=== PATIENT | female | born 1995 ===

== ENCOUNTER 2020-06-29 04:08 | Inpatient (IN) | payer MEDICAID, OTHER ==
[2020-06-29] MEDS ORDERED: Carboprost Tromethamine 250 MCG/1 ML Amp IM PRN (12:50)
[2020-06-29] MEDS ORDERED: Methylergonovine 0.2 MG/1 ML Amp IM PRN (12:50)
[2020-06-29] MEDS ORDERED: Lidocaine 1% 50 ML MDV INJECT PRN (12:50)
[2020-06-29] MEDS ORDERED: Misoprostol 200 MCG Tab PO PRN (12:50)
[2020-06-29] MEDS ORDERED: Sodium Chloride 0.9% 10 ML Syringe FLUSH PRN (12:50)
[2020-06-29] MEDS ORDERED: Sodium Chloride 0.9% 2.5 ML Syringe FLUSH PRN (12:50)
[2020-06-29] MEDS ORDERED: Sodium Chloride 0.9% 10 ML SDV IV PRN (12:50)
[2020-06-29] MEDS ORDERED: Water For Irrigation,Sterile 1,000 ML Container IRR PRN (12:50)
[2020-06-29] MEDS ORDERED: Nalbuphine 10 MG/1 ML Vial IVPUSH PRN (12:50)
[2020-06-29] MEDS ORDERED: Tranexamic Acid 1,000 MG in Sodium Chloride 0.9% 100 ML IV PRN (12:50)
[2020-06-29] MEDS ORDERED: Misoprostol 25 MCG (1/4 of 100 MCG) Tab VAG PRN (12:52)
[2020-06-29] MEDS ORDERED: Terbutaline 1 MG/ML SDV SUBCUT PRN (12:52)
[2020-06-29] MEDS ORDERED: Oxytocin/0.9 % Sodium Chloride 30 UNIT/500 ML BAG IV SCH ×2 (13:00)
[2020-06-29] MEDS: Misoprostol 25 MCG (1/4 of 100 MCG) Tab VAG PRN ×2 (18:51→23:05)
[2020-06-30] MEDS: Misoprostol 25 MCG (1/4 of 100 MCG) Tab VAG PRN ×2 (03:28→08:59)
[2020-06-30] MEDS: Butorphanol 1 MG/ML SDV IVPUSH PRN ×2 (06:02→09:41)
[2020-06-30] MEDS: Lactated Ringers 1,000 ML IV SCH ×2 (10:00→10:33)
[2020-06-30] MEDS ORDERED: Ropivacaine HCl/PF 100 ML ONE (10:19)
[2020-06-30] MEDS ORDERED: fentaNYL 100 MCG/2 ML SDV ONE (10:19)
--- NOTE | 2020-06-30 10:58 | PCM.PREANE ---
Preanesthetic Assessment - Procedure Proposed Procedure: Continuous labor epidural - Anesthesia/Transfusion/Family Hx Anesthesia History: Prior Anesthesia Without Reaction ([place] teeth without anesthetic complications. Unable to recall anesthetic type.) Family History of Anesthesia Reaction: No Transfusion History: No Prior Transfusion(s) - Review of Systems General: No Symptoms Pulmonary: No Symptoms Cardiovascular: No Symptoms Gastrointestinal: No Symptoms Neurological: No Symptoms Other: Reports: None - Physical Assessment NPO Status Date: 06/30/20 NPO Status Time: 10:00 (Clear liquids okay) Height: 1.7 m Weight: 78.471 kg ASA Class: 2 Mental Status: Alert & Oriented x3 Dentition: Reports: Normal Dentition ROM/Head Extension: Full Lungs: Normal Respiratory Effort Cardiovascular: Regular Rate, Regular Rhythm - Lab Values: Laboratory Last Values WBC 9.71 K/uL (4.0-11.0) 06/29/20 12:40 RBC 4.10 M/uL (4.30-5.90) L 06/29/20 12:40 Hgb 11.8 g/dL (12.0-16.0) L 06/29/20 12:40 Hct 36.8 % (36.0-46.0) 06/29/20 12:40 MCV 89.8 fL (80.0-98.0) 06/29/20 12:40 MCH 28.8 pg (27.0-32.0) 06/29/20 12:40 MCHC 32.1 g/dL (31.0-37.0) 06/29/20 12:40 RDW Std Deviation 61.7 fl (28.0-62.0) 06/29/20 12:40 RDW Coeff of Lissa 19 % (11.0-15.0) H 06/29/20 12:40 Plt Count 166 K/uL (150-400) 06/29/20 12:40 MPV 11.30 fL (7.40-12.00) 06/29/20 12:40 Nucleated RBC % 0.0 /100WBC 06/29/20 12:40 Nucleated RBCs # 0 K/uL 06/29/20 12:40 COVID-19 (ANA) NEGATIVE (NEGATIVE) 06/29/20 11:55 Blood Type O POSITIVE 06/29/20 12:40 Antibody Screen NEGATIVE 06/29/20 12:40 - Allergies Allergies/Adverse Reactions: Allergies Allergy/AdvReac Type Severity Reaction Status Date / Time No Known Allergies Allergy Verified 06/29/20 11:50 - Acknowledgements Anesthesia Type Planned: Epidural Pt an Appropriate Candidate for the Planned Anesthesia: Yes Alternatives and Risks of Anesthesia Discussed w Pt/Guardian: Yes Pt/Guardian Understands and Agrees with Anesthesia Plan: Yes Additional Comments: Pt educated on epidural risks, benefits, alternatives, procedure, maintenance, and anesthesia coverage. All questions answered and concerns addressed. 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: Musculoskeletal History: Reports: None Neurological History: Reports: None Psychiatric History: Reports: None Endocrine/Metabolic History: Reports: None Hematologic History: Reports: None Immunologic History: Reports: None Oncologic (Cancer) History: Reports: None Dermatologic History: Reports: None - Infectious Disease History Infectious Disease History: Reports: None - Past Surgical History HEENT Surgical History: Reports: Oral Surgery, Other (See Below) Other HEENT Surgeries/Procedures: wisdom teeth out GI Surgical History: Reports: None - SUBSTANCE USE Smoking Status *Q: Never Smoker Second Hand Smoke Exposure: No Recreational Drug Use History: No - HOME MEDS Home Medications: Home Meds Pnv No.95/Ferrous Fum/Folic AC [ Caplet] 1 each PO DAILY 06/29/20 [History] - CURRENT (IN HOUSE) MEDS Current Meds: Current Medications Butorphanol Tartrate (Stadol) 1 mg IVPUSH Q1H PRN PRN Reason: Pain Last Admin: 06/30/20 09:41 Dose: 1 mg Documented by: Carboprost Tromethamine (Hemabate Ds) 250 mcg IM ASDIRECTED PRN PRN Reason: Post Hemorrhage Oxytocin/Sodium Chloride (Oxytocin 30 Unit/500 Ml-Ns) 30 unit in 500 mls @ 500 mls/hr IV TITRATE SKYLER Tranexamic Acid 1,000 mg/ (Sodium Chloride) 110 mls @ 660 mls/hr IV ONETIME PRN PRN Reason: Bleeding Lactated Ringer's (Ringers, Lactated) 1,000 mls @ 150 mls/hr IV ASDIRECTED SKYLER Last Infusion: 08/05/20 10:46 Dose: 500 mls/hr Documented by: Oxytocin/Sodium Chloride (Oxytocin 30 Unit/500 Ml-Ns) 30 unit in 500 mls @ 2 mls/hr IV TITRATE SKYLER; Protocol Lidocaine HCl (Xylocaine 1%) 50 ml INJECT ONETIME PRN PRN Reason: Laceration repair Methylergonovine Maleate (Methergine) 0.2 mg IM ASDIRECTED PRN PRN Reason: Post Hemorrhage Misoprostol (Cytotec) 200 mcg PO ONETIME PRN PRN Reason: Post Hemorrhage Misoprostol (Cytotec) 25 mcg VAG ONETIME PRN PRN Reason: Cervical Ripening Last Admin: 06/29/20 13:31 Dose: 25 mcg Documented by: Misoprostol (Cytotec) 25 mcg VAG Q4H PRN PRN Reason: Cervical Ripening Last Admin: 06/30/20 08:59 Dose: 25 mcg Documented by: Nalbuphine HCl (Nubain) 10 mg IVPUSH Q1H PRN PRN Reason: Pain (severe 7-10) Sodium Chloride (Saline Flush) 10 ml FLUSH ASDIRECTED PRN PRN Reason: Keep Vein Open Sodium Chloride (Saline Flush) 2.5 ml FLUSH ASDIRECTED PRN PRN Reason: Keep Vein Open Sodium Chloride (Normal Saline) 10 ml IV ASDIRECTED PRN PRN Reason: IV Use Sterile Water (Sterile Water For Irrigation) 1,000 ml IRR ASDIRECTED PRN PRN Reason: delivery Terbutaline Sulfate (Brethine) 0.25 mg SUBCUT ASDIRECTED PRN PRN Reason: Tacysystole Discontinued Medications Fentanyl (Sublimaze) Confirm Administered Dose 200 mcg .ROUTE .STK-MED ONE Stop: 06/30/20 10:20 Ropivacaine (Naropin 0.2%) Confirm Administered Dose 100 mls @ as directed .ROUTE .STK-MED ONE Stop: 06/30/20 10:20
[2020-06-30] MEDS ORDERED: Ondansetron 4 MG/2 ML SDV IVPUSH PRN (20:59)
--- NOTE | 2020-06-30 21:43 | PCM.SN.2 ---
- Free Text/Narrative Note: 06/30/20: Paged to OB for breakthrough labor pain with contractions. Bedside at 2118. Epidural level assessed at T9 on R, T10 on L. Pt has used SPECIAL EDUC[employer] INCLUSION TEACHER button once since epidural placement, so further education and encouragement provided regarding [employer]UC[employer] INCLUSION TEACHER usage, and fears addressed. Hourly limit increased to 32, with hourly rate increased from 6 to 8ml/hr. Pt reassessed at 0941- T8 level bilat., and pain control satisfactory per patient.
[2020-06-30] MEDS ORDERED: Bupivicaine/fentaNYL/NS 250 ML ONE (23:21)
[2020-07-01] MEDS ORDERED: oxyCODONE 5 MG Tab PO PRN (04:49)
[2020-07-01] MEDS ORDERED: Ibuprofen 400 MG Tab PO PRN (04:49)
[2020-07-01] MEDS ORDERED: Acetaminophen 500 MG Tab PO PRN (04:49)
[2020-07-01] MEDS ORDERED: Benzocaine/Menthol 20%-0.5% Spray 78 GM Cannister TOP PRN (04:49)
[2020-07-01] MEDS ORDERED: Bisacodyl 10 MG Supp RECTAL PRN (04:49)
[2020-07-01] MEDS ORDERED: Docusate Sodium 100 MG Cap PO PRN (04:49)
[2020-07-01] MEDS ORDERED: Ibuprofen 800 MG Tab PO PRN (04:49)
[2020-07-01] MEDS ORDERED: Witch Hazel Medicated Pads 40/Jar TOP PRN (04:49)
[2020-07-01] MEDS ORDERED: Lanolin 100% Cream 7 GM Tube TOP PRN (04:49)
--- NOTE | 2020-07-01 04:49 | PCM.DEL ---
L & D Note - General Info Date of Service: 07/01/20 Mother's Due Date: 06/28/20 - Delivery Note Labor: Induced by ARM, Induced by Oxytocin Cervical Ripening Method: Balloon Device, Misoprostil Delivery Outcome: Livebirth Delivery Method: Spontaneous Vaginal Delivery-Single Delivery Mode: Spontaneous Presentation: Right Occiput Transverse (ROT) Nuchal Cord: Present Anesthesia Type: Epidural Amniotic Fluid Description: Clear Episiotomy Type: None Laceration: 1st Degree Suture type: Vicryl Suture size: 3-0 Placenta: Intact, Spontaneous Cord: 3 Vessels Estimated Blood Loss: 200 Resuscitation Needed: No : Suctioned, Bulb Syringe, Warmer Used Score 1 min: 8 Score 5 min: 8 Second Stage Interventions: Reports: Encouragement Given, Laboring Down, Pushing Effectively Delivery Comments (Free Text/Narrative):: Patient was induced 06/29/20 for postdates at 40w1d. She received 5 doses of vaginal cytotec followed by wen balloon and pitocin at 1200 06/30/20. AROM was performed at 1800, IUPC was placed. Labor progressed uneventfully and patient was complete at 0150 am 07/01/20, she labored down for an hour and pushed for 30 minutes. occurred at 0408; APGARs were 8/8, placenta was delivered at 0414, MEU was performed and uterus was clear. Right labia first degree lacerations were repaired with 3-0 vicryl. EBL 200. Patient and infant in stable condition in labor room. - General Info Date of Service: 07/01/20 - Patient Data Weight - Most Recent: 173 lb Lab Results Last 24 Hours: Laboratory Results - last 24 hr 06/29/20 Range/Units 12:40 RPR Non-Reac (Non-Reac) Med Orders - Current: Current Medications Butorphanol Tartrate (Stadol) 1 mg IVPUSH Q1H PRN PRN Reason: Pain Last Admin: 06/30/20 09:41 Dose: 1 mg Documented by: Carboprost Tromethamine (Hemabate Ds) 250 mcg IM ASDIRECTED PRN PRN Reason: Post Hemorrhage Oxytocin/Sodium Chloride (Oxytocin 30 Unit/500 Ml-Ns) 30 unit in 500 mls @ 500 mls/hr IV TITRATE SKYLER Last Admin: 07/01/20 03:38 Dose: 500 mls/hr Documented by: Tranexamic Acid 1,000 mg/ (Sodium Chloride) 110 mls @ 660 mls/hr IV ONETIME PRN PRN Reason: Bleeding Lactated Ringer's (Ringers, Lactated) 1,000 mls @ 150 mls/hr IV ASDIRECTED SKYLER Last Infusion: 06/30/20 10:56 Dose: 150 mls/hr Documented by: Oxytocin/Sodium Chloride (Oxytocin 30 Unit/500 Ml-Ns) 30 unit in 500 mls @ 2 mls/hr IV TITRATE SKYLER; Protocol Last Titration: 06/30/20 23:51 Dose: 28 munits/min, 28 mls/hr Documented by: Lidocaine HCl (Xylocaine 1%) 50 ml INJECT ONETIME PRN PRN Reason: Laceration repair Methylergonovine Maleate (Methergine) 0.2 mg IM ASDIRECTED PRN PRN Reason: Post Hemorrhage Misoprostol (Cytotec) 200 mcg PO ONETIME PRN PRN Reason: Post Hemorrhage Misoprostol (Cytotec) 25 mcg VAG ONETIME PRN PRN Reason: Cervical Ripening Last Admin: 06/29/20 13:31 Dose: 25 mcg Documented by: Misoprostol (Cytotec) 25 mcg VAG Q4H PRN PRN Reason: Cervical Ripening Last Admin: 06/30/20 08:59 Dose: 25 mcg Documented by: Nalbuphine HCl (Nubain) 10 mg IVPUSH Q1H PRN PRN Reason: Pain (severe 7-10) Ondansetron HCl (Zofran) 4 mg IVPUSH Q4H PRN PRN Reason: Vomiting Last Admin: 06/30/20 21:19 Dose: 4 mg Documented by: Sodium Chloride (Saline Flush) 10 ml FLUSH ASDIRECTED PRN PRN Reason: Keep Vein Open Sodium Chloride (Saline Flush) 2.5 ml FLUSH ASDIRECTED PRN PRN Reason: Keep Vein Open Sodium Chloride (Normal Saline) 10 ml IV ASDIRECTED PRN PRN Reason: IV Use Sterile Water (Sterile Water For Irrigation) 1,000 ml IRR ASDIRECTED PRN PRN Reason: delivery Terbutaline Sulfate (Brethine) 0.25 mg SUBCUT ASDIRECTED PRN PRN Reason: Tacysystole Discontinued Medications Fentanyl (Sublimaze) Confirm Administered Dose 200 mcg .ROUTE .STK-MED ONE Stop: 06/30/20 10:20 Ropivacaine (Naropin 0.2%) Confirm Administered Dose 100 mls @ as directed .ROUTE .STK-MED ONE Stop: 06/30/20 10:20 Fentanyl/Bupivacaine HCl (Fentanyl/Bupivacaine/Ns 2 Mcg-0.125% 250 Ml) Confirm Administered Dose 250 mls @ as directed .ROUTE .STK-MED ONE Stop: 06/30/20 23:22 - Problem List & Annotations (1) Status post vaginal delivery SNOMED Code(s): 610537614, 781319468, 181032693 Code(s): MLF6180 - Status: Acute Current Visit: Yes (2) Iron deficiency anemia SNOMED Code(s): 42969652 Code(s): D50.9 - IRON DEFICIENCY ANEMIA, UNSPECIFIED Status: Acute Current Visit: Yes - Problem List Review Problem List Initiated/Reviewed/Updated: Yes - Plan Plan:: 1. GBS negative 2. Rubella immune 3. Induction 06/29/20 for postdates 4. Iron deficiency initial 11.8 Hemoglobin, repeat Hemoglobin tomorrow 5. care per unit routine
--- NOTE | 2020-07-01 09:09 | PCM48HPAN ---
Post Anesthesia Note - EVALUATION WITHIN 48HRS OF ANESTHETIC Vital Signs in Normal Range: Yes Patient Participated in Evaluation: Yes Respiratory Function Stable: Yes Airway Patent: Yes Cardiovascular Function Stable: Yes Hydration Status Stable: Yes Pain Control Satisfactory: Yes Nausea and Vomiting Control Satisfactory: Yes Mental Status Recovered: Yes - COMMENTS/OBSERVATIONS Free Text/Narrative:: doing well
[2020-07-01] MEDS: Acetaminophen 500 MG Tab PO PRN ×2 (16:42→23:55)
[2020-07-01] MEDS ORDERED: Ampicillin/Sulbactam Na 3 GM in Sodium Chloride 0.9% 100 ML IV SCH (18:00)
[2020-07-01] MEDS ORDERED: Sodium Chloride 0.9% 250 ML ONE (18:15)
[2020-07-02] MEDS: Ampicillin/Sulbactam Na 3 GM in Sodium Chloride 0.9% 100 ML IV SCH ×4 (01:28→19:55)
--- NOTE | 2020-07-02 07:27 | PCM.PNPP ---
<Louise Joseph - Last Filed: 07/02/20 08:10> - General Info Date of Service: 07/02/20 Admission Dx/Problem (Free Text): of male weighing 7lbs 2 ounces to a 24 year old female who was induced for postdates. Apgars 8 Subjective Update: Patient reports that she is doing well. She did note that in the middle of the night she had some shaking chills that improved after drinking some water and using more blankets. Temperatures were recorded at 99.4 and 98 this morning. Repeat CBC demonstrated WBC of 14.99, decreased from a WBC of 18.07 yesterday. Initial hemoglobin was 11.8, subsequent hemoglobins have been 11.2 and 10.5 this morning. She is currently receiving ampicillin-sulbactam and Tylenol. Otherwise she is feeling well. Has not defecated but is passing gas. She is breast and bottle feeding. Functional Status: Reports: Pain Controlled, Tolerating Diet, Ambulating, Urinating - Review of Systems General: Reports: Chills HEENT: Reports: No Symptoms Pulmonary: Reports: No Symptoms Cardiovascular: Reports: No Symptoms Gastrointestinal: Reports: No Symptoms Genitourinary: Reports: No Symptoms Musculoskeletal: Reports: No Symptoms Skin: Reports: No Symptoms Neurological: Reports: No Symptoms Psychiatric: Reports: No Symptoms - General Info Date of Service: 07/02/20 - Patient Data Vital Signs - Most Recent: Last Vital Signs Temp 98 F 07/02/20 03:57 Pulse 80 07/02/20 03:57 Resp 14 07/02/20 03:57 BP 112/67 07/02/20 03:57 Pulse Ox 95 07/02/20 03:57 Weight - Most Recent: 78.471 kg Lab Results - Last 24 Hours: Laboratory Results - last 24 hr 07/01/20 07/02/20 Range/Units 17:27 06:02 WBC 18.07 H 14.99 H (4.0-11.0) K/uL RBC 3.83 L 3.62 L (4.30-5.90) M/uL Hgb 11.2 L 10.5 L (12.0-16.0) g/dL Hct 34.3 L 32.6 L (36.0-46.0) % MCV 89.6 90.1 (80.0-98.0) fL MCH 29.2 29.0 (27.0-32.0) pg MCHC 32.7 32.2 (31.0-37.0) g/dL RDW Std Deviation 62.1 H 63.3 H (28.0-62.0) fl RDW Coeff of Lissa 19 H 19 H (11.0-15.0) % Plt Count 153 141 L (150-400) K/uL MPV 11.20 10.90 (7.40-12.00) fL Neut % (Auto) 87.3 H 89.4 H (48.0-80.0) % Lymph % (Auto) 4.9 L 5.1 L (16.0-40.0) % [place] % (Auto) 7.6 5.4 (0.0-15.0) % Eos % (Auto) 0.1 0.1 (0.0-7.0) % Baso % (Auto) 0.1 0.0 (0.0-1.5) % Neut # (Auto) 15.8 H 13.4 H (1.4-5.7) K/uL Lymph # (Auto) 0.9 0.8 (0.6-2.4) K/uL [place] # (Auto) 1.4 H 0.8 (0.0-0.8) K/uL Eos # (Auto) 0.0 0.0 (0.0-0.7) K/uL Baso # (Auto) 0.0 0.0 (0.0-0.1) K/uL Nucleated RBC % 0.0 0.0 /100WBC Nucleated RBCs # 0 0 K/uL Med Orders - Current: Current Medications Acetaminophen (Tylenol Extra Strength) 500 mg PO Q4H PRN PRN Reason: Pain Acetaminophen (Tylenol Extra Strength) 1,000 mg PO Q4H PRN PRN Reason: Pain Last Admin: 07/01/20 23:55 Dose: 1,000 mg Documented by: Benzocaine/Menthol (Dermoplast Pain Relief 20%-0.5% [place]) 78 gm TOP ASDIRECTED PRN PRN Reason: Perineal Comfort Measure Last Admin: 07/01/20 05:09 Dose: 1 spray Documented by: Bisacodyl (Dulcolax) 10 mg RECTAL ONETIME PRN PRN Reason: Constipation Docusate Sodium (Colace) 100 mg PO BID PRN PRN Reason: Constipation Emollient Ointment (Lansinoh Hpa) 0 gm TOP ASDIRECTED PRN PRN Reason: Sore Nipples Ampicillin Sodium/Sulbactam (Sodium 3 gm/ Sodium Chloride) 100 mls @ 200 mls/hr IV Q6H [facility] Last Admin: 07/02/20 01:28 Dose: 200 mls/hr Documented by: Ibuprofen (Motrin) 400 mg PO Q4H PRN PRN Reason: Pain Ibuprofen (Motrin) 800 mg PO Q6H PRN PRN Reason: Pain Oxycodone HCl (Oxycodone) 5 mg PO Q2H PRN PRN Reason: Pain Witch Sherin (Tucks) 1 pad TOP ASDIRECTED PRN PRN Reason: comfort care Last Admin: 07/01/20 05:09 Dose: 1 pad Documented by: Discontinued Medications Butorphanol Tartrate (Stadol) 1 mg IVPUSH Q1H PRN PRN Reason: Pain Last Admin: 06/30/20 09:41 Dose: 1 mg Documented by: Carboprost Tromethamine (Hemabate Ds) 250 mcg IM ASDIRECTED PRN PRN Reason: Post Hemorrhage Fentanyl (Sublimaze) Confirm Administered Dose 200 mcg .ROUTE .STK-MED ONE Stop: 06/30/20 10:20 Oxytocin/Sodium Chloride (Oxytocin 30 Unit/500 Ml-Ns) 30 unit in 500 mls @ 500 mls/hr IV TITRATE [facility] Last Admin: 07/01/20 03:38 Dose: 500 mls/hr Documented by: Tranexamic Acid 1,000 mg/ (Sodium Chloride) 110 mls @ 660 mls/hr IV ONETIME PRN PRN Reason: Bleeding Lactated Ringer's (Ringers, Lactated) 1,000 mls @ 150 mls/hr IV ASDIRECTED [facility] Last Infusion: 06/30/20 10:56 Dose: 150 mls/hr Documented by: Oxytocin/Sodium Chloride (Oxytocin 30 Unit/500 Ml-Ns) 30 unit in 500 mls @ 2 mls/hr IV TITRATE [facility]; Protocol Last Titration: 06/30/20 23:51 Dose: 28 munits/min, 28 mls/hr Documented by: Ropivacaine (Naropin 0.2%) Confirm Administered Dose 100 mls @ as directed .ROUTE .[employer] ONE Stop: 06/30/20 10:20 Fentanyl/Bupivacaine HCl (Fentanyl/Bupivacaine/Ns 2 Mcg-0.125% 250 Ml) Confirm Administered Dose 250 mls @ as directed .ROUTE .[employer] ONE Stop: 06/30/20 23:22 Ampicillin Sodium/Sulbactam (Sodium 3 gm/ Sodium Chloride) 100 mls @ 200 mls/hr IV Q6H [facility] Last Admin: 07/01/20 19:05 Dose: 200 mls/hr Documented by: Sodium Chloride (Normal Saline (Advbag)) Confirm Administered Dose 250 mls @ as directed .ROUTE .[employer] ONE Stop: 07/01/20 18:16 Lidocaine HCl (Xylocaine 1%) 50 ml INJECT ONETIME PRN PRN Reason: Laceration repair Methylergonovine Maleate (Methergine) 0.2 mg IM ASDIRECTED PRN PRN Reason: Post Hemorrhage Misoprostol (Cytotec) 200 mcg PO ONETIME PRN PRN Reason: Post Hemorrhage Misoprostol (Cytotec) 25 mcg VAG ONETIME PRN PRN Reason: Cervical Ripening Last Admin: 06/29/20 13:31 Dose: 25 mcg Documented by: Misoprostol (Cytotec) 25 mcg VAG Q4H PRN PRN Reason: Cervical Ripening Last Admin: 06/30/20 08:59 Dose: 25 mcg Documented by: Nalbuphine HCl (Nubain) 10 mg IVPUSH Q1H PRN PRN Reason: Pain (severe 7-10) Ondansetron HCl (Zofran) 4 mg IVPUSH Q4H PRN PRN Reason: Vomiting Last Admin: 06/30/20 21:19 Dose: 4 mg Documented by: Sodium Chloride (Saline Flush) 10 ml FLUSH ASDIRECTED PRN PRN Reason: Keep Vein Open Sodium Chloride (Saline Flush) 2.5 ml FLUSH ASDIRECTED PRN PRN Reason: Keep Vein Open Sodium Chloride (Normal Saline) 10 ml IV ASDIRECTED PRN PRN Reason: IV Use Sterile Water (Sterile Water For Irrigation) 1,000 ml IRR ASDIRECTED PRN PRN Reason: delivery Terbutaline Sulfate (Brethine) 0.25 mg SUBCUT ASDIRECTED PRN PRN Reason: Tacysystole - Interaction Disposition, : at Bedside Interaction: Other (see below) (Infant sleeping in crib) Feeding: Attempted ; Nursed Fair/Poor, Bottle Fed Infant, Encouraged to Breastfeed Support Person: Other (see below) - Recovery Exam Fundal Tone: Firm Fundal Level: 1 Fingerbreadths Below Umbilicus Fundal Placement: Midline Lochia Amount: Scant Lochia Color: Rubra/Red Perineum Description: Edematous Episiotomy/Laceration: Approximated Bladder Status: Voiding - Exam General: Alert, Oriented HEENT: Pupils Equal, Pupils Reactive, EOMI Lungs: Clear to Auscultation, Normal Respiratory Effort Cardiovascular: Regular Rate, Regular Rhythm, Tachycardia GI/Abdominal Exam: Normal Bowel Sounds, Soft, Non-Tender, No Organomegaly, No Distention, No Mass Extremities: Normal Inspection, Non-Tender, No Pedal Edema, Normal Capillary Ref ill Skin: Warm, Dry, Intact Neurological: No New Focal Deficit Psy/Mental Status: Alert, Normal Affect, Normal Mood - Problem List & Annotations (1) Status post vaginal delivery SNOMED Code(s): 110749044, 269721209, 591014012 Code(s): SSL9323 - Status: Acute Current Visit: Yes (2) Iron deficiency anemia SNOMED Code(s): 97231935 Code(s): D50.9 - IRON DEFICIENCY ANEMIA, UNSPECIFIED Status: Acute Current Visit: Yes - Problem List Review Problem List Initiated/Reviewed/Updated: Yes - Assessment Assessment:: of a male weighing 7lbs 2 oz to a 24 year old female who underwent induction for oligohydramnios. Apgars 8/8 - Plan Plan:: 1. GBS negative 2. Rubella immune 3. Induction 06/29/20 for postdates 4. Iron deficiency initial 11.8 Hemoglobin, repeat Hemoglobin 11.2 and 10.5 5. care per unit routine 6. Continue 7. Continue on the ampicillin-sulbactam and monitor for fever or worsening symptoms. WBC has improved with ampicillin-sulbactam, however patient is tachycardic and warm. 8. Discharge home tomorrow on Augmentin if symptoms improve <Anjali-Vannessa Delgado - Last Filed: 07/02/20 08:32> - Patient Data Vital Signs - Most Recent: Last Vital Signs Temp 36.8 C 07/02/20 07:54 Pulse 120 H 07/02/20 07:54 Resp 16 07/02/20 07:54 BP 92/49 L 07/02/20 07:54 Pulse Ox 94 L 07/02/20 07:54 Lab Results - Last 24 Hours: Laboratory Results - last 24 hr 07/01/20 07/02/20 Range/Units 17:27 06:02 WBC 18.07 H 14.99 H (4.0-11.0) K/uL RBC 3.83 L 3.62 L (4.30-5.90) M/uL Hgb 11.2 L 10.5 L (12.0-16.0) g/dL Hct 34.3 L 32.6 L (36.0-46.0) % MCV 89.6 90.1 (80.0-98.0) fL MCH 29.2 29.0 (27.0-32.0) pg MCHC 32.7 32.2 (31.0-37.0) g/dL RDW Std Deviation 62.1 H 63.3 H (28.0-62.0) fl RDW Coeff of [place] 19 H 19 H (11.0-15.0) % Plt Count 153 141 L (150-400) K/uL MPV 11.20 10.90 (7.40-12.00) fL Neut % (Auto) 87.3 H 89.4 H (48.0-80.0) % Lymph % (Auto) 4.9 L 5.1 L (16.0-40.0) % [place] % (Auto) 7.6 5.4 (0.0-15.0) % Eos % (Auto) 0.1 0.1 (0.0-7.0) % Baso % (Auto) 0.1 0.0 (0.0-1.5) % Neut # (Auto) 15.8 H 13.4 H (1.4-5.7) K/uL Lymph # (Auto) 0.9 0.8 (0.6-2.4) K/uL [place] # (Auto) 1.4 H 0.8 (0.0-0.8) K/uL Eos # (Auto) 0.0 0.0 (0.0-0.7) K/uL Baso # (Auto) 0.0 0.0 (0.0-0.1) K/uL Nucleated RBC % 0.0 0.0 /100WBC Nucleated RBCs # 0 0 K/uL Med Orders - Current: Current Medications Acetaminophen (Tylenol Extra Strength) 500 mg PO Q4H PRN PRN Reason: Pain Acetaminophen (Tylenol Extra Strength) 1,000 mg PO Q4H PRN PRN Reason: Pain Last Admin: 07/01/20 23:55 Dose: 1,000 mg Documented by: Benzocaine/Menthol (Dermoplast Pain Relief 20%-0.5% [place]) 78 gm TOP ASDIRECTED PRN PRN Reason: Perineal Comfort Measure Last Admin: 07/01/20 05:09 Dose: 1 spray Documented by: Bisacodyl (Dulcolax) 10 mg RECTAL ONETIME PRN PRN Reason: Constipation Docusate Sodium (Colace) 100 mg PO BID PRN PRN Reason: Constipation Emollient Ointment (Lansinoh Hpa) 0 gm TOP ASDIRECTED PRN PRN Reason: Sore Nipples Ampicillin Sodium/Sulbactam (Sodium 3 gm/ Sodium Chloride) 100 mls @ 200 mls/hr IV Q6H [facility] Last Admin: 07/02/20 07:34 Dose: 200 mls/hr Documented by: Lactated Ringer's (Ringers, Lactated) 1,000 mls @ 120 mls/hr IV ASDIRECTED [facility] Last Admin: 07/02/20 08:19 Dose: 120 mls/hr Documented by: Ibuprofen (Motrin) 400 mg PO Q4H PRN PRN Reason: Pain Ibuprofen (Motrin) 800 mg PO Q6H PRN PRN Reason: Pain Oxycodone HCl (Oxycodone) 5 mg PO Q2H PRN PRN Reason: Pain Witch Sherin (Tucks) 1 pad TOP ASDIRECTED PRN PRN Reason: comfort care Last Admin: 07/01/20 05:09 Dose: 1 pad Documented by: Discontinued Medications Butorphanol Tartrate (Stadol) 1 mg IVPUSH Q1H PRN PRN Reason: Pain Last Admin: 06/30/20 09:41 Dose: 1 mg Documented by: Carboprost Tromethamine (Hemabate Ds) 250 mcg IM ASDIRECTED PRN PRN Reason: Post Hemorrhage Fentanyl (Sublimaze) Confirm Administered Dose 200 mcg .ROUTE .STK-MED ONE Stop: 06/30/20 10:20 Oxytocin/Sodium Chloride (Oxytocin 30 Unit/500 Ml-Ns) 30 unit in 500 mls @ 500 mls/hr IV TITRATE [facility] Last Admin: 07/01/20 03:38 Dose: 500 mls/hr Documented by: Tranexamic Acid 1,000 mg/ (Sodium Chloride) 110 mls @ 660 mls/hr IV ONETIME PRN PRN Reason: Bleeding Lactated Ringer's (Ringers, Lactated) 1,000 mls @ 150 mls/hr IV ASDIRECTED [facility] Last Infusion: 06/30/20 10:56 Dose: 150 mls/hr Documented by: Oxytocin/Sodium Chloride (Oxytocin 30 Unit/500 Ml-Ns) 30 unit in 500 mls @ 2 mls/hr IV TITRATE [facility]; Protocol Last Titration: 06/30/20 23:51 Dose: 28 munits/min, 28 mls/hr Documented by: Ropivacaine (Naropin 0.2%) Confirm Administered Dose 100 mls @ as directed .ROUTE .STK-MED ONE Stop: 06/30/20 10:20 Fentanyl/Bupivacaine HCl (Fentanyl/Bupivacaine/Ns 2 Mcg-0.125% 250 Ml) Confirm Administered Dose 250 mls @ as directed .ROUTE .STK-MED ONE Stop: 06/30/20 23:22 Ampicillin Sodium/Sulbactam (Sodium 3 gm/ Sodium Chloride) 100 mls @ 200 mls/hr IV Q6H [facility] Last Admin: 07/01/20 19:05 Dose: 200 mls/hr Documented by: Sodium Chloride (Normal Saline (Advbag)) Confirm Administered Dose 250 mls @ as directed .ROUTE .STK-MED ONE Stop: 07/01/20 18:16 Lidocaine HCl (Xylocaine 1%) 50 ml INJECT ONETIME PRN PRN Reason: Laceration repair Methylergonovine Maleate (Methergine) 0.2 mg IM ASDIRECTED PRN PRN Reason: Post Hemorrhage Misoprostol (Cytotec) 200 mcg PO ONETIME PRN PRN Reason: Post Hemorrhage Misoprostol (Cytotec) 25 mcg VAG ONETIME PRN PRN Reason: Cervical Ripening Last Admin: 06/29/20 13:31 Dose: 25 mcg Documented by: Misoprostol (Cytotec) 25 mcg VAG Q4H PRN PRN Reason: Cervical Ripening Last Admin: 06/30/20 08:59 Dose: 25 mcg Documented by: Nalbuphine HCl (Nubain) 10 mg IVPUSH Q1H PRN PRN Reason: Pain (severe 7-10) Ondansetron HCl (Zofran) 4 mg IVPUSH Q4H PRN PRN Reason: Vomiting Last Admin: 06/30/20 21:19 Dose: 4 mg Documented by: Sodium Chloride (Saline Flush) 10 ml FLUSH ASDIRECTED PRN PRN Reason: Keep Vein Open Sodium Chloride (Saline Flush) 2.5 ml FLUSH ASDIRECTED PRN PRN Reason: Keep Vein Open Sodium Chloride (Normal Saline) 10 ml IV ASDIRECTED PRN PRN Reason: IV Use Sterile Water (Sterile Water For Irrigation) 1,000 ml IRR ASDIRECTED PRN PRN Reason: delivery Terbutaline Sulfate (Brethine) 0.25 mg SUBCUT ASDIRECTED PRN PRN Reason: Tacysystole - Problem List & Annotations (1) Status post vaginal delivery SNOMED Code(s): 405043648, 631189512, 797583841 Code(s): IOZ7487 - Status: Acute Current Visit: Yes (2) fever SNOMED Code(s): 426994549, 045993839 Code(s): O86.4 - PYREXIA OF UNKNOWN ORIGIN FOLLOWING DELIVERY Status: Acute Current Visit: Yes - My Orders Last 24 Hours: My Active Orders 07/02/20 01:00 Ampicillin/Sulbactam Na [Unasyn] 3 gm Sodium Chloride 0.9% [Normal Saline] 100 ml IV Q6H 07/02/20 08:15 Lactated Ringers [Ringers, Lactated] 1,000 ml IV ASDIRECTED 07/03/20 08:24 CBC WITH MANUAL DIFF [HEME] Routine - Assessment Assessment:: 24yo P1 s/p PPD1 , Postoperative fever , Decreasing WBC count , Tachycardia , , ambulating , normal lochia - Plan Plan:: As above LR 1000ml bolus Continue Unasyn Will discharge home tomorrow with augmentin ( script sent) CBC in am Monitor vital signs
[2020-07-02] MEDS ORDERED: Lactated Ringers 1,000 ML IV SCH (08:15)
[2020-07-02] MEDS: Acetaminophen 500 MG Tab PO PRN ×2 (08:46→19:37)
[2020-07-02] MEDS ORDERED: Sodium Chloride 0.9% 1,000 ML IV ONE (17:45)
[2020-07-02 18:52] LABS: BLOOD UREA NITROGEN,BUN 7 mg/dL (7.0-18.0); CARBON DIOXIDE,CO2 26.2 mmol/L (21.0-32.0); CHLORIDE,CL 102 mmol/L (98-107); GLUCOSE RANDOM 79 mg/dL (74-106); POTASSIUM,K 3.7 mmol/L (3.5-5.1); SODIUM,NA 136 mmol/L (136-145)
--- NOTE | 2020-07-02 19:17 | PCM.PN ---
<Louise Joseph - Last Filed: 07/02/20 20:36> - General Info Date of Service: 07/02/20 Admission Dx/Problem (Free Text): Status post day 1 of male infant weighing 7lbs 2 ounces to a 24 year old female who was induced for postdates. Apgars 8/8 Subjective Update: Patient is day 1 post of male . She reports that she is feeling well, however she reported overnight that she had an episode of shaking chills that resolved after approximately 15 minutes with some hydration and warm blankets. At 1 am this morning she received a dose of ampicillin/sulbactam 3 grams for elevated temperatures in addition to Tylenol. Since this time she has received 3 doses of ampicillin/sulbactam 3 grams as prescribed by Dr. Delgado. CBC done this morning demonstrated improving WBC. She was evaluated this afternoon for a temperature of 101.8 F and tachycardia of 126 bpm; blood pressure remain 110-120s/55-60s. She did note that she initially had a rhinitis and sinus drainage prior to induction that had resolved, however today she reports that she has had return of the rhinitis and sinus drainage. She reports that the drainage is clear. She denies any cough, shortness of breath or dysuria. She did report some incontinence earlier today, but no dysuria. She had a negative COVID test 06/30/20. Functional Status: Reports: Pain Controlled, Tolerating Diet, Ambulating, Urinating - Review of Systems General: Reports: Fever HEENT: Reports: Sinus Congestion, Rhinitis Pulmonary: Reports: No Symptoms Cardiovascular: Reports: No Symptoms Gastrointestinal: Reports: No Symptoms Genitourinary: Reports: Incontinence. Denies: Dysuria Musculoskeletal: Reports: No Symptoms - Patient Data Vitals - Most Recent: Last Vital Signs Temp 101.8 F H 07/02/20 17:01 Pulse 126 H 07/02/20 17:01 Resp 16 07/02/20 17:01 BP 116/56 L 07/02/20 17:01 Pulse Ox 95 07/02/20 17:01 Weight - Most Recent: 78.471 kg Lab Results Last 24 Hours: Laboratory Results - last 24 hr 07/02/20 07/02/20 07/02/20 Range/Units 06:02 18:08 18:08 WBC 14.99 H 14.14 H (4.0-11.0) K/uL RBC 3.62 L 3.65 L (4.30-5.90) M/uL Hgb 10.5 L 10.7 L (12.0-16.0) g/dL Hct 32.6 L 33.2 L (36.0-46.0) % MCV 90.1 91.0 (80.0-98.0) fL MCH 29.0 29.3 (27.0-32.0) pg MCHC 32.2 32.2 (31.0-37.0) g/dL RDW Std Deviation 63.3 H 63.0 H (28.0-62.0) fl RDW Coeff of Lissa 19 H 19 H (11.0-15.0) % Plt Count 141 L 136 L (150-400) K/uL MPV 10.90 10.60 (7.40-12.00) fL Neut % (Auto) 89.4 H (48.0-80.0) % Lymph % (Auto) 5.1 L (16.0-40.0) % [place] % (Auto) 5.4 (0.0-15.0) % Eos % (Auto) 0.1 (0.0-7.0) % Baso % (Auto) 0.0 (0.0-1.5) % Neut # (Auto) 13.4 H (1.4-5.7) K/uL Lymph # (Auto) 0.8 (0.6-2.4) K/uL [place] # (Auto) 0.8 (0.0-0.8) K/uL Eos # (Auto) 0.0 (0.0-0.7) K/uL Baso # (Auto) 0.0 (0.0-0.1) K/uL Neutrophils % (Manual) 65 (48.0-80.0) % Band Neutrophils % 23 % Lymphocytes % (Manual) 10 L (16.0-40.0) % Monocytes % (Manual) 2 (0.0-15.0) % Nucleated RBC % 0.0 0.0 /100WBC Absolute Seg Neuts 9.2 H (1.4-5.7) Band Neutrophils # 3.3 Lymphocytes # (Manual) 1.4 (0.6-2.4) Monocytes # (Manual) 0.3 (0.0-0.8) Nucleated RBCs # 0 K/uL Lactate 0.7 (0.20-2.00) mmol/L Sodium (136-145) mmol/L Potassium (3.5-5.1) mmol/L Chloride (98-107) mmol/L Carbon Dioxide (21.0-32.0) mmol/L BUN (7.0-18.0) mg/dL Creatinine (0.6-1.0) mg/dL Est Cr Clr Drug Dosing mL/min Estimated GFR (MDRD) ml/min Glucose (74-106) mg/dL Calcium (8.5-10.1) mg/dL Total Bilirubin (0.2-1.0) mg/dL AST (15-37) IU/L ALT (14-63) IU/L Alkaline Phosphatase (46-116) U/L Total Protein (6.4-8.2) g/dL Albumin (3.4-5.0) g/dL Globulin (2.6-4.0) g/dL Albumin/Globulin Ratio (0.9-1.6) COVID-19 (ANA) (NEGATIVE) 07/02/20 07/02/20 Range/Units 18:08 18:31 WBC (4.0-11.0) K/uL RBC (4.30-5.90) M/uL Hgb (12.0-16.0) g/dL Hct (36.0-46.0) % MCV (80.0-98.0) fL MCH (27.0-32.0) pg MCHC (31.0-37.0) g/dL RDW Std Deviation (28.0-62.0) fl RDW Coeff of Lissa (11.0-15.0) % Plt Count (150-400) K/uL MPV (7.40-12.00) fL Neut % (Auto) (48.0-80.0) % Lymph % (Auto) (16.0-40.0) % [place] % (Auto) (0.0-15.0) % Eos % (Auto) (0.0-7.0) % Baso % (Auto) (0.0-1.5) % Neut # (Auto) (1.4-5.7) K/uL Lymph # (Auto) (0.6-2.4) K/uL [place] # (Auto) (0.0-0.8) K/uL Eos # (Auto) (0.0-0.7) K/uL Baso # (Auto) (0.0-0.1) K/uL Neutrophils % (Manual) (48.0-80.0) % Band Neutrophils % % Lymphocytes % (Manual) (16.0-40.0) % Monocytes % (Manual) (0.0-15.0) % Nucleated RBC % /100WBC Absolute Seg Neuts (1.4-5.7) Band Neutrophils # Lymphocytes # (Manual) (0.6-2.4) Monocytes # (Manual) (0.0-0.8) Nucleated RBCs # K/uL Lactate (0.20-2.00) mmol/L Sodium 136 (136-145) mmol/L Potassium 3.7 (3.5-5.1) mmol/L Chloride 102 (98-107) mmol/L Carbon Dioxide 26.2 (21.0-32.0) mmol/L BUN 7 (7.0-18.0) mg/dL Creatinine 0.6 (0.6-1.0) mg/dL Est Cr Clr Drug Dosing 143.02 mL/min Estimated GFR (MDRD) > 60.0 ml/min Glucose 79 (74-106) mg/dL Calcium 8.0 L (8.5-10.1) mg/dL Total Bilirubin 0.3 (0.2-1.0) mg/dL AST 24 (15-37) IU/L ALT 17 (14-63) IU/L Alkaline Phosphatase 89 (46-116) U/L Total Protein 6.4 (6.4-8.2) g/dL Albumin 2.3 L (3.4-5.0) g/dL Globulin 4.1 H (2.6-4.0) g/dL Albumin/Globulin Ratio 0.6 L (0.9-1.6) COVID-19 (ANA) NEGATIVE (NEGATIVE) Med Orders - Current: Current Medications Acetaminophen (Tylenol Extra Strength) 500 mg PO Q4H PRN PRN Reason: Pain Acetaminophen (Tylenol Extra Strength) 1,000 mg PO Q4H PRN PRN Reason: Pain Last Admin: 07/02/20 08:46 Dose: 1,000 mg Documented by: Benzocaine/Menthol (Dermoplast Pain Relief 20%-0.5% [employer]) 78 gm TOP ASDIRECTED PRN PRN Reason: Perineal Comfort Measure Last Admin: 07/01/20 05:09 Dose: 1 spray Documented by: Bisacodyl (Dulcolax) 10 mg RECTAL ONETIME PRN PRN Reason: Constipation Docusate Sodium (Colace) 100 mg PO BID PRN PRN Reason: Constipation Emollient Ointment (Lansinoh Hpa) 0 gm TOP ASDIRECTED PRN PRN Reason: Sore Nipples Ampicillin Sodium/Sulbactam (Sodium 3 gm/ Sodium Chloride) 100 mls @ 200 mls/hr IV Q6H [facility] Last Admin: 07/02/20 13:24 Dose: 200 mls/hr Documented by: Lactated Ringer's (Ringers, Lactated) 1,000 mls @ 120 mls/hr IV ASDIRECTED [facility] Last Admin: 07/02/20 08:19 Dose: 120 mls/hr Documented by: Ibuprofen (Motrin) 400 mg PO Q4H PRN PRN Reason: Pain Ibuprofen (Motrin) 800 mg PO Q6H PRN PRN Reason: Pain Oxycodone HCl (Oxycodone) 5 mg PO Q2H PRN PRN Reason: Pain Witch Sherin (Tucks) 1 pad TOP ASDIRECTED PRN PRN Reason: comfort care Last Admin: 07/01/20 05:09 Dose: 1 pad Documented by: Discontinued Medications Butorphanol Tartrate (Stadol) 1 mg IVPUSH Q1H PRN PRN Reason: Pain Last Admin: 06/30/20 09:41 Dose: 1 mg Documented by: Carboprost Tromethamine (Hemabate Ds) 250 mcg IM ASDIRECTED PRN PRN Reason: Post Hemorrhage Fentanyl (Sublimaze) Confirm Administered Dose 200 mcg .ROUTE .STK-MED ONE Stop: 06/30/20 10:20 Oxytocin/Sodium Chloride (Oxytocin 30 Unit/500 Ml-Ns) 30 unit in 500 mls @ 500 mls/hr IV TITRATE [facility] Last Admin: 07/01/20 03:38 Dose: 500 mls/hr Documented by: Tranexamic Acid 1,000 mg/ (Sodium Chloride) 110 mls @ 660 mls/hr IV ONETIME PRN PRN Reason: Bleeding Lactated Ringer's (Ringers, Lactated) 1,000 mls @ 150 mls/hr IV ASDIRECTED [facility] Last Infusion: 06/30/20 10:56 Dose: 150 mls/hr Documented by: Oxytocin/Sodium Chloride (Oxytocin 30 Unit/500 Ml-Ns) 30 unit in 500 mls @ 2 mls/hr IV TITRATE [facility]; Protocol Last Titration: 06/30/20 23:51 Dose: 28 munits/min, 28 mls/hr Documented by: Ropivacaine (Naropin 0.2%) Confirm Administered Dose 100 mls @ as directed .ROUTE .STK-MED ONE Stop: 06/30/20 10:20 Fentanyl/Bupivacaine HCl (Fentanyl/Bupivacaine/Ns 2 Mcg-0.125% 250 Ml) Confirm Administered Dose 250 mls @ as directed .ROUTE .STK-MED ONE Stop: 06/30/20 23:22 Ampicillin Sodium/Sulbactam (Sodium 3 gm/ Sodium Chloride) 100 mls @ 200 mls/hr IV Q6H [facility] Last Admin: 07/01/20 19:05 Dose: 200 mls/hr Documented by: Sodium Chloride (Normal Saline (Advbag)) Confirm Administered Dose 250 mls @ as directed .ROUTE .STK-MED ONE Stop: 07/01/20 18:16 Sodium Chloride (Normal Saline) 1,000 mls @ 999 mls/hr IV .Bolus ONE Stop: 07/02/20 18:45 Last Admin: 07/02/20 18:08 Dose: 999 mls/hr Documented by: Lidocaine HCl (Xylocaine 1%) 50 ml INJECT ONETIME PRN PRN Reason: Laceration repair Methylergonovine Maleate (Methergine) 0.2 mg IM ASDIRECTED PRN PRN Reason: Post Hemorrhage Misoprostol (Cytotec) 200 mcg PO ONETIME PRN PRN Reason: Post Hemorrhage Misoprostol (Cytotec) 25 mcg VAG ONETIME PRN PRN Reason: Cervical Ripening Last Admin: 06/29/20 13:31 Dose: 25 mcg Documented by: Misoprostol (Cytotec) 25 mcg VAG Q4H PRN PRN Reason: Cervical Ripening Last Admin: 06/30/20 08:59 Dose: 25 mcg Documented by: Nalbuphine HCl (Nubain) 10 mg IVPUSH Q1H PRN PRN Reason: Pain (severe 7-10) Ondansetron HCl (Zofran) 4 mg IVPUSH Q4H PRN PRN Reason: Vomiting Last Admin: 06/30/20 21:19 Dose: 4 mg Documented by: Sodium Chloride (Saline Flush) 10 ml FLUSH ASDIRECTED PRN PRN Reason: Keep Vein Open Sodium Chloride (Saline Flush) 2.5 ml FLUSH ASDIRECTED PRN PRN Reason: Keep Vein Open Sodium Chloride (Normal Saline) 10 ml IV ASDIRECTED PRN PRN Reason: IV Use Sterile Water (Sterile Water For Irrigation) 1,000 ml IRR ASDIRECTED PRN PRN Reason: delivery Terbutaline Sulfate (Brethine) 0.25 mg SUBCUT ASDIRECTED PRN PRN Reason: Tacysystole - Exam General: Alert, Oriented HEENT: Pupils Equal, Pupils Reactive, EOMI, Mucous Membr. Moist/[place], Other (Frontal and maxillary sinuses non tender on palpation) Neck: Supple Lungs: Clear to Auscultation, Normal Respiratory Effort. No: Decreased Breath Sounds, Crackles, Rales, Rhonchi Cardiovascular: Regular Rhythm, No Murmurs, Tachycardia. No: Irregular Rhythm, Gallops, Rubs GI/Abdominal Exam: Normal Bowel Sounds, Soft, Non-Tender, No Organomegaly, No Distention, No Mass (Female) Exam: No: Uterine Tenderness Back Exam: Normal Inspection. No: CVA Tenderness (L), CVA Tenderness (R) Extremities: Normal Inspection, Non-Tender, Normal Capillary Refill. No: Pedal Edema Peripheral Pulses: 2+: Radial (L), Radial (R), Posterior Tibial (L), Posterior Tibial (R), Dorsalis Pedis (L), Dorsalis Pedis (R) Skin: Warm, Intact, Moist Neurological: No New Focal Deficit Psy/Mental Status: Alert, Normal Affect, Normal Mood Sepsis Event Note - Evaluation Sepsis Screening Result: Sepsis Risk Current Stage of Sepsis: Sepsis Reason for Ruling Out Sepsis: Fever despite receiving 3 doses of 3 grams of ampicillin/sulbactam - Focused Exam Sepsis Event Note Statement: Focused Sepsis Exam Completed Vital Signs: Vital Signs Temp Temp Temp Pulse Resp BP Pulse Ox 07/02/20 17:01 101.8 F H 126 H 16 116/56 L 95 07/02/20 11:00 98.0 F 07/02/20 10:00 116 H 111/58 L 07/02/20 08:46 99.3 F 07/02/20 08:39 99.5 F 07/02/20 07:54 98.3 F 120 H 16 92/49 L 94 L Capillary Refill, Detail: Less than/Equal to (</=) 2 Seconds Pulse Description: 2+ Normal Peripheral Pulse Location: Posterior Tibial Skin Exam (Focused Sepsis): Flushed, Diaphoretic Date Exam was Performed: 07/02/20 Time Exam was Performed: 17:36 - Bedside Monitoring Bedside Ultrasound Performed: No Passive Leg Raise/Fluid Bolus: Not Performed Date Bedside Monitoring was Performed: 07/02/20 Time Bedside Monitoring was Performed: 17:36 - Problem List & Annotations (1) Status post vaginal delivery SNOMED Code(s): 776508304, 770888579, 185160600 Code(s): ZAN5534 - Status: Acute Current Visit: Yes (2) Iron deficiency anemia SNOMED Code(s): 54826602 Code(s): D50.9 - IRON DEFICIENCY ANEMIA, UNSPECIFIED Status: Acute Current Visit: Yes (3) fever SNOMED Code(s): 276996255, 906747111 Code(s): O86.4 - PYREXIA OF UNKNOWN ORIGIN FOLLOWING DELIVERY Status: Acute Current Visit: Yes - Problem List Review Problem List Initiated/Reviewed/Updated: Yes - Assessment Assessment:: 24yo P1 s/p PPD1 , Postoperative fever , Decreasing WBC count, Tachycardia , , ambulating , normal lochia - Plan Plan:: 1. fever - CBC, UA, lactic acid, Chest Xray, Blood cultures x 2, Covid Test ordered in agreement with sepsis core measurement requirements 2. Continue ampicillin-sulbactam 3 g 3. IV bolus at 30 mL/kg NS per sepsis protocol 4. Monitor vitals 5. Tylenol as an antipyretic <Michelle López - Last Filed: 07/02/20 20:49> - Patient Data Vitals - Most Recent: Last Vital Signs Temp 37.7 C 07/02/20 20:07 Pulse 105 H 07/02/20 20:10 Resp 16 07/02/20 19:35 BP 107/57 L 07/02/20 20:10 Pulse Ox 95 07/02/20 19:35 Lab Results Last 24 Hours: Laboratory Results - last 24 hr 07/02/20 07/02/20 07/02/20 Range/Units 06:02 18:08 18:08 WBC 14.99 H 14.14 H (4.0-11.0) K/uL RBC 3.62 L 3.65 L (4.30-5.90) M/uL Hgb 10.5 L 10.7 L (12.0-16.0) g/dL Hct 32.6 L 33.2 L (36.0-46.0) % MCV 90.1 91.0 (80.0-98.0) fL MCH 29.0 29.3 (27.0-32.0) pg MCHC 32.2 32.2 (31.0-37.0) g/dL RDW Std Deviation 63.3 H 63.0 H (28.0-62.0) fl RDW Coeff of Lissa 19 H 19 H (11.0-15.0) % Plt Count 141 L 136 L (150-400) K/uL MPV 10.90 10.60 (7.40-12.00) fL Neut % (Auto) 89.4 H (48.0-80.0) % Lymph % (Auto) 5.1 L (16.0-40.0) % [place] % (Auto) 5.4 (0.0-15.0) % Eos % (Auto) 0.1 (0.0-7.0) % Baso % (Auto) 0.0 (0.0-1.5) % Neut # (Auto) 13.4 H (1.4-5.7) K/uL Lymph # (Auto) 0.8 (0.6-2.4) K/uL [place] # (Auto) 0.8 (0.0-0.8) K/uL Eos # (Auto) 0.0 (0.0-0.7) K/uL Baso # (Auto) 0.0 (0.0-0.1) K/uL Neutrophils % (Manual) 65 (48.0-80.0) % Band Neutrophils % 23 % Lymphocytes % (Manual) 10 L (16.0-40.0) % Monocytes % (Manual) 2 (0.0-15.0) % Nucleated RBC % 0.0 0.0 /100WBC Absolute Seg Neuts 9.2 H (1.4-5.7) Band Neutrophils # 3.3 Lymphocytes # (Manual) 1.4 (0.6-2.4) Monocytes # (Manual) 0.3 (0.0-0.8) Nucleated RBCs # 0 K/uL Lactate 0.7 (0.20-2.00) mmol/L Sodium (136-145) mmol/L Potassium (3.5-5.1) mmol/L Chloride (98-107) mmol/L Carbon Dioxide (21.0-32.0) mmol/L BUN (7.0-18.0) mg/dL Creatinine (0.6-1.0) mg/dL Est Cr Clr Drug Dosing mL/min Estimated GFR (MDRD) ml/min Glucose (74-106) mg/dL Calcium (8.5-10.1) mg/dL Total Bilirubin (0.2-1.0) mg/dL AST (15-37) IU/L ALT (14-63) IU/L Alkaline Phosphatase (46-116) U/L Total Protein (6.4-8.2) g/dL Albumin (3.4-5.0) g/dL Globulin (2.6-4.0) g/dL Albumin/Globulin Ratio (0.9-1.6) Urine Color Urine Appearance Urine pH (5.0-8.0) Ur Specific [place] (1.001-1.035) Urine Protein (NEGATIVE) mg/dL Urine Glucose (UA) (NEGATIVE) mg/dL Urine Ketones (NEGATIVE) mg/dL Urine Occult Blood (NEGATIVE) Urine Nitrite (NEGATIVE) Urine Bilirubin (NEGATIVE) Urine Urobilinogen (<2.0) EU/dL Ur Leukocyte Esterase (NEGATIVE) Urine RBC (0-2/HPF) Urine WBC (0-5/HPF) Ur Epithelial Cells (NONE-FEW) Urine Bacteria (NEGATIVE) COVID-19 (ANA) (NEGATIVE) 07/02/20 07/02/20 07/02/20 Range/Units 18:08 18:31 19:48 WBC (4.0-11.0) K/uL RBC (4.30-5.90) M/uL Hgb (12.0-16.0) g/dL Hct (36.0-46.0) % MCV (80.0-98.0) fL MCH (27.0-32.0) pg MCHC (31.0-37.0) g/dL RDW Std Deviation (28.0-62.0) fl RDW Coeff of Lissa (11.0-15.0) % Plt Count (150-400) K/uL MPV (7.40-12.00) fL Neut % (Auto) (48.0-80.0) % Lymph % (Auto) (16.0-40.0) % [place] % (Auto) (0.0-15.0) % Eos % (Auto) (0.0-7.0) % Baso % (Auto) (0.0-1.5) % Neut # (Auto) (1.4-5.7) K/uL Lymph # (Auto) (0.6-2.4) K/uL [place] # (Auto) (0.0-0.8) K/uL Eos # (Auto) (0.0-0.7) K/uL Baso # (Auto) (0.0-0.1) K/uL Neutrophils % (Manual) (48.0-80.0) % Band Neutrophils % % Lymphocytes % (Manual) (16.0-40.0) % Monocytes % (Manual) (0.0-15.0) % Nucleated RBC % /100WBC Absolute Seg Neuts (1.4-5.7) Band Neutrophils # Lymphocytes # (Manual) (0.6-2.4) Monocytes # (Manual) (0.0-0.8) Nucleated RBCs # K/uL Lactate (0.20-2.00) mmol/L Sodium 136 (136-145) mmol/L Potassium 3.7 (3.5-5.1) mmol/L Chloride 102 (98-107) mmol/L Carbon Dioxide 26.2 (21.0-32.0) mmol/L BUN 7 (7.0-18.0) mg/dL Creatinine 0.6 (0.6-1.0) mg/dL Est Cr Clr Drug Dosing 143.02 mL/min Estimated GFR (MDRD) > 60.0 ml/min Glucose 79 (74-106) mg/dL Calcium 8.0 L (8.5-10.1) mg/dL Total Bilirubin 0.3 (0.2-1.0) mg/dL AST 24 (15-37) IU/L ALT 17 (14-63) IU/L Alkaline Phosphatase 89 (46-116) U/L Total Protein 6.4 (6.4-8.2) g/dL Albumin 2.3 L (3.4-5.0) g/dL Globulin 4.1 H (2.6-4.0) g/dL Albumin/Globulin Ratio 0.6 L (0.9-1.6) Urine Color YELLOW Urine Appearance CLOUDY Urine pH 8.0 (5.0-8.0) Ur Specific [place] 1.010 (1.001-1.035) Urine Protein TRACE H (NEGATIVE) mg/dL Urine Glucose (UA) NEGATIVE (NEGATIVE) mg/dL Urine Ketones NEGATIVE (NEGATIVE) mg/dL Urine Occult Blood LARGE H (NEGATIVE) Urine Nitrite NEGATIVE (NEGATIVE) Urine Bilirubin NEGATIVE (NEGATIVE) Urine Urobilinogen 1.0 (<2.0) EU/dL Ur Leukocyte Esterase LARGE H (NEGATIVE) Urine RBC 3-5 (0-2/HPF) Urine WBC 8-10 (0-5/HPF) Ur Epithelial Cells OCCASIONAL (NONE-FEW) Urine Bacteria 1+ H (NEGATIVE) COVID-19 (ANA) NEGATIVE (NEGATIVE) Med Orders - Current: Current Medications Acetaminophen (Tylenol Extra Strength) 500 mg PO Q4H PRN PRN Reason: Pain Acetaminophen (Tylenol Extra Strength) 1,000 mg PO Q4H PRN PRN Reason: Pain Last Admin: 07/02/20 19:37 Dose: 1,000 mg Documented by: Benzocaine/Menthol (Dermoplast Pain Relief 20%-0.5% [employer]) 78 gm TOP ASDIRECTED PRN PRN Reason: Perineal Comfort Measure Last Admin: 07/01/20 05:09 Dose: 1 spray Documented by: Bisacodyl (Dulcolax) 10 mg RECTAL ONETIME PRN PRN Reason: Constipation Docusate Sodium (Colace) 100 mg PO BID PRN PRN Reason: Constipation Emollient Ointment (Lansinoh Hpa) 0 gm TOP ASDIRECTED PRN PRN Reason: Sore Nipples Gentamicin Sulfate (Pharmacy To Dose - Gentamicin) 1 dose .XX ASDIRECTED [facility] Ampicillin Sodium/Sulbactam (Sodium 3 gm/ Sodium Chloride) 100 mls @ 200 mls/hr IV Q6H [facility] Last Admin: 07/02/20 19:55 Dose: 200 mls/hr Documented by: Lactated Ringer's (Ringers, Lactated) 1,000 mls @ 120 mls/hr IV ASDIRECTED [facility] Last Admin: 07/02/20 08:19 Dose: 120 mls/hr Documented by: Gentamicin Sulfate 350 mg/ (Sodium Chloride) 108.75 mls @ 108.75 mls/hr IV Q24H [facility] Ibuprofen (Motrin) 400 mg PO Q4H PRN PRN Reason: Pain Ibuprofen (Motrin) 800 mg PO Q6H PRN PRN Reason: Pain Oxycodone HCl (Oxycodone) 5 mg PO Q2H PRN PRN Reason: Pain Witch Sherin (Tucks) 1 pad TOP ASDIRECTED PRN PRN Reason: comfort care Last Admin: 07/01/20 05:09 Dose: 1 pad Documented by: Discontinued Medications Butorphanol Tartrate (Stadol) 1 mg IVPUSH Q1H PRN PRN Reason: Pain Last Admin: 06/30/20 09:41 Dose: 1 mg Documented by: Carboprost Tromethamine (Hemabate Ds) 250 mcg IM ASDIRECTED PRN PRN Reason: Post Hemorrhage Fentanyl (Sublimaze) Confirm Administered Dose 200 mcg .ROUTE .STK-MED ONE Stop: 06/30/20 10:20 Oxytocin/Sodium Chloride (Oxytocin 30 Unit/500 Ml-Ns) 30 unit in 500 mls @ 500 mls/hr IV TITRATE [facility] Last Admin: 07/01/20 03:38 Dose: 500 mls/hr Documented by: Tranexamic Acid 1,000 mg/ (Sodium Chloride) 110 mls @ 660 mls/hr IV ONETIME PRN PRN Reason: Bleeding Lactated Ringer's (Ringers, Lactated) 1,000 mls @ 150 mls/hr IV ASDIRECTED [facility] Last Infusion: 06/30/20 10:56 Dose: 150 mls/hr Documented by: Oxytocin/Sodium Chloride (Oxytocin 30 Unit/500 Ml-Ns) 30 unit in 500 mls @ 2 mls/hr IV TITRATE [facility]; Protocol Last Titration: 06/30/20 23:51 Dose: 28 munits/min, 28 mls/hr Documented by: Ropivacaine (Naropin 0.2%) Confirm Administered Dose 100 mls @ as directed .ROUTE .STK-MED ONE Stop: 06/30/20 10:20 Fentanyl/Bupivacaine HCl (Fentanyl/Bupivacaine/Ns 2 Mcg-0.125% 250 Ml) Confirm Administered Dose 250 mls @ as directed .ROUTE .STK-MED ONE Stop: 06/30/20 23:22 Ampicillin Sodium/Sulbactam (Sodium 3 gm/ Sodium Chloride) 100 mls @ 200 mls/hr IV Q6H [facility] Last Admin: 07/01/20 19:05 Dose: 200 mls/hr Documented by: Sodium Chloride (Normal Saline (Advbag)) Confirm Administered Dose 250 mls @ as directed .ROUTE .STK-MED ONE Stop: 07/01/20 18:16 Sodium Chloride (Normal Saline) 1,000 mls @ 999 mls/hr IV .Bolus ONE Stop: 07/02/20 18:45 Last Admin: 07/02/20 18:08 Dose: 999 mls/hr Documented by: Lidocaine HCl (Xylocaine 1%) 50 ml INJECT ONETIME PRN PRN Reason: Laceration repair Methylergonovine Maleate (Methergine) 0.2 mg IM ASDIRECTED PRN PRN Reason: Post Hemorrhage Misoprostol (Cytotec) 200 mcg PO ONETIME PRN PRN Reason: Post Hemorrhage Misoprostol (Cytotec) 25 mcg VAG ONETIME PRN PRN Reason: Cervical Ripening Last Admin: 06/29/20 13:31 Dose: 25 mcg Documented by: Misoprostol (Cytotec) 25 mcg VAG Q4H PRN PRN Reason: Cervical Ripening Last Admin: 06/30/20 08:59 Dose: 25 mcg Documented by: Nalbuphine HCl (Nubain) 10 mg IVPUSH Q1H PRN PRN Reason: Pain (severe 7-10) Ondansetron HCl (Zofran) 4 mg IVPUSH Q4H PRN PRN Reason: Vomiting Last Admin: 06/30/20 21:19 Dose: 4 mg Documented by: Sodium Chloride (Saline Flush) 10 ml FLUSH ASDIRECTED PRN PRN Reason: Keep Vein Open Sodium Chloride (Saline Flush) 2.5 ml FLUSH ASDIRECTED PRN PRN Reason: Keep Vein Open Sodium Chloride (Normal Saline) 10 ml IV ASDIRECTED PRN PRN Reason: IV Use Sterile Water (Sterile Water For Irrigation) 1,000 ml IRR ASDIRECTED PRN PRN Reason: delivery Terbutaline Sulfate (Brethine) 0.25 mg SUBCUT ASDIRECTED PRN PRN Reason: Tacysystole Sepsis Event Note - Focused Exam Vital Signs: Vital Signs Temp Temp Pulse Resp BP Pulse Ox 07/02/20 20:10 105 H 107/57 L 07/02/20 20:07 37.7 C 07/02/20 19:37 38.1 C 07/02/20 19:35 38.1 C 126 H 16 111/58 L 95 07/02/20 17:01 38.8 C H 126 H 16 116/56 L 95 07/02/20 11:00 36.7 C 07/02/20 10:00 116 H 111/58 L 07/02/20 08:46 37.4 C Date Exam was Performed: 07/02/20 Time Exam was Performed: 20:43 - Problem List Review Problem List Initiated/Reviewed/Updated: Yes - My Orders Last 24 Hours: My Active Orders 07/02/20 17:45 Blood Culture x2 Reflex Set [OM.PC] Stat Severe Sepsis Onset Time [OM.PC] Stat 07/02/20 17:46 Blood Pressure Mgt: Sepsis [RC] [id number] 07/02/20 18:08 CULTURE BLOOD [BC] Stat 07/02/20 18:18 CULTURE BLOOD [BC] Stat 07/02/20 19:45 Pharmacy to Dose - Gentamicin 1 dose .XX ASDIRECTED 07/02/20 21:00 Gentamicin 350 mg Sodium Chloride 0.9% [Normal Saline] 100 ml IV Q24H - Assessment Assessment:: I was present for exam and plan at approximately 5:30 pm, and I agree with the exam as recorded by subintern, WBC is elevated with left shift, with no source of infection on evaluation, will broaden antibiotic coverage with Clindamycin and gentamicin.
--- NOTE | 2020-07-02 19:34 | CR ---
Chest: Portable view of the chest was obtained. Comparison: No prior chest imaging is available. Heart size and mediastinum are normal. Lungs are clear with no acute parenchymal change. Bony structures are grossly intact. Impression: 1. Nothing acute is seen on portable chest x-ray. Diagnostic code #1 This report was dictated in MDT
[2020-07-02] MEDS ORDERED: Clindamycin Phosphate in D5W 600 MG in Premix Bag 1 BAG IV SCH ×2 (21:15)
[2020-07-03] MEDS: Ampicillin/Sulbactam Na 3 GM in Sodium Chloride 0.9% 100 ML IV SCH ×4 (01:06→19:50)
[2020-07-03] MEDS: Clindamycin Phosphate in D5W 600 MG in Premix Bag 1 BAG IV SCH ×8 (05:01→22:58)
--- NOTE | 2020-07-03 08:02 | PCM.PN ---
<Louise Joseph - Last Filed: 07/03/20 10:37> - General Info Date of Service: 07/03/20 Admission Dx/Problem (Free Text): Status post day 2 of male infant weighing 7lbs 2 ounces to a 24 year old female who was induced for postdates. Apgars 8/8. fever day 1 Subjective Update: Patient states she is doing better today. She is able to urinate and ambulate without issue. She has a good appetite. is going well. She has not yet defecated but has been passing flatus. She reports that her rhinitis has improved and she no longer needs to use a tissue in her nostril to control the nasal drainage. She denies any shortness of breath or cough, chest pain, abdominal pain or dysuria. Functional Status: Reports: Pain Controlled, Tolerating Diet, Ambulating, Urinating - Review of Systems General: Reports: No Symptoms HEENT: Reports: No Symptoms Pulmonary: Reports: No Symptoms Cardiovascular: Reports: No Symptoms Gastrointestinal: Reports: No Symptoms Genitourinary: Reports: No Symptoms Musculoskeletal: Reports: No Symptoms Skin: Reports: No Symptoms Neurological: Reports: No Symptoms Psychiatric: Reports: No Symptoms - Patient Data Vitals - Most Recent: Last Vital Signs Temp 97.5 F 07/03/20 06:50 Pulse 80 07/03/20 04:00 Resp 16 07/03/20 04:00 BP 119/58 L 07/03/20 04:00 Pulse Ox 95 07/03/20 04:00 Weight - Most Recent: 78.471 kg Lab Results Last 24 Hours: Laboratory Results - last 24 hr 07/02/20 07/02/20 07/02/20 Range/Units 18:08 18:08 18:08 WBC 14.14 H (4.0-11.0) K/uL RBC 3.65 L (4.30-5.90) M/uL Hgb 10.7 L (12.0-16.0) g/dL Hct 33.2 L (36.0-46.0) % MCV 91.0 (80.0-98.0) fL MCH 29.3 (27.0-32.0) pg MCHC 32.2 (31.0-37.0) g/dL RDW Std Deviation 63.0 H (28.0-62.0) fl RDW Coeff of Lissa 19 H (11.0-15.0) % Plt Count 136 L (150-400) K/uL MPV 10.60 (7.40-12.00) fL Neutrophils % (Manual) 65 (48.0-80.0) % Band Neutrophils % 23 % Lymphocytes % (Manual) 10 L (16.0-40.0) % Monocytes % (Manual) 2 (0.0-15.0) % Nucleated RBC % 0.0 /100WBC Absolute Seg Neuts 9.2 H (1.4-5.7) Band Neutrophils # 3.3 Lymphocytes # (Manual) 1.4 (0.6-2.4) Monocytes # (Manual) 0.3 (0.0-0.8) Lactate 0.7 (0.20-2.00) mmol/L Sodium 136 (136-145) mmol/L Potassium 3.7 (3.5-5.1) mmol/L Chloride 102 (98-107) mmol/L Carbon Dioxide 26.2 (21.0-32.0) mmol/L BUN 7 (7.0-18.0) mg/dL Creatinine 0.6 (0.6-1.0) mg/dL Est Cr Clr Drug Dosing 143.02 mL/min Estimated GFR (MDRD) > 60.0 ml/min Glucose 79 (74-106) mg/dL Calcium 8.0 L (8.5-10.1) mg/dL Total Bilirubin 0.3 (0.2-1.0) mg/dL AST 24 (15-37) IU/L ALT 17 (14-63) IU/L Alkaline Phosphatase 89 (46-116) U/L Total Protein 6.4 (6.4-8.2) g/dL Albumin 2.3 L (3.4-5.0) g/dL Globulin 4.1 H (2.6-4.0) g/dL Albumin/Globulin Ratio 0.6 L (0.9-1.6) Urine Color Urine Appearance Urine pH (5.0-8.0) Ur Specific Robards (1.001-1.035) Urine Protein (NEGATIVE) mg/dL Urine Glucose (UA) (NEGATIVE) mg/dL Urine Ketones (NEGATIVE) mg/dL Urine Occult Blood (NEGATIVE) Urine Nitrite (NEGATIVE) Urine Bilirubin (NEGATIVE) Urine Urobilinogen (<2.0) EU/dL Ur Leukocyte Esterase (NEGATIVE) Urine RBC (0-2/HPF) Urine WBC (0-5/HPF) Ur Epithelial Cells (NONE-FEW) Urine Bacteria (NEGATIVE) Random Gentamicin (2.0-10.0) ug/mL COVID-19 (ANA) (NEGATIVE) 07/02/20 07/02/20 07/03/20 Range/Units 18:31 19:48 06:15 WBC 10.97 (4.0-11.0) K/uL RBC 3.73 L (4.30-5.90) M/uL Hgb 10.8 L (12.0-16.0) g/dL Hct 33.8 L (36.0-46.0) % MCV 90.6 (80.0-98.0) fL MCH 29.0 (27.0-32.0) pg MCHC 32.0 (31.0-37.0) g/dL RDW Std Deviation 62.5 H (28.0-62.0) fl RDW Coeff of Lissa 19 H (11.0-15.0) % Plt Count 142 L (150-400) K/uL MPV 10.70 (7.40-12.00) fL Neutrophils % (Manual) 61 (48.0-80.0) % Band Neutrophils % 31 % Lymphocytes % (Manual) 5 L (16.0-40.0) % Monocytes % (Manual) 3 (0.0-15.0) % Nucleated RBC % 0.0 /100WBC Absolute Seg Neuts 6.7 H (1.4-5.7) Band Neutrophils # 3.4 Lymphocytes # (Manual) 0.5 L (0.6-2.4) Monocytes # (Manual) 0.3 (0.0-0.8) Lactate (0.20-2.00) mmol/L Sodium (136-145) mmol/L Potassium (3.5-5.1) mmol/L Chloride (98-107) mmol/L Carbon Dioxide (21.0-32.0) mmol/L BUN (7.0-18.0) mg/dL Creatinine (0.6-1.0) mg/dL Est Cr Clr Drug Dosing mL/min Estimated GFR (MDRD) ml/min Glucose (74-106) mg/dL Calcium (8.5-10.1) mg/dL Total Bilirubin (0.2-1.0) mg/dL AST (15-37) IU/L ALT (14-63) IU/L Alkaline Phosphatase (46-116) U/L Total Protein (6.4-8.2) g/dL Albumin (3.4-5.0) g/dL Globulin (2.6-4.0) g/dL Albumin/Globulin Ratio (0.9-1.6) Urine Color YELLOW Urine Appearance CLOUDY Urine pH 8.0 (5.0-8.0) Ur Specific Robards 1.010 (1.001-1.035) Urine Protein TRACE H (NEGATIVE) mg/dL Urine Glucose (UA) NEGATIVE (NEGATIVE) mg/dL Urine Ketones NEGATIVE (NEGATIVE) mg/dL Urine Occult Blood LARGE H (NEGATIVE) Urine Nitrite NEGATIVE (NEGATIVE) Urine Bilirubin NEGATIVE (NEGATIVE) Urine Urobilinogen 1.0 (<2.0) EU/dL Ur Leukocyte Esterase LARGE H (NEGATIVE) Urine RBC 3-5 (0-2/HPF) Urine WBC 8-10 (0-5/HPF) Ur Epithelial Cells OCCASIONAL (NONE-FEW) Urine Bacteria 1+ H (NEGATIVE) Random Gentamicin (2.0-10.0) ug/mL COVID-19 (ANA) NEGATIVE (NEGATIVE) 07/03/20 Range/Units 06:15 WBC (4.0-11.0) K/uL RBC (4.30-5.90) M/uL Hgb (12.0-16.0) g/dL Hct (36.0-46.0) % MCV (80.0-98.0) fL MCH (27.0-32.0) pg MCHC (31.0-37.0) g/dL RDW Std Deviation (28.0-62.0) fl RDW Coeff of Lissa (11.0-15.0) % Plt Count (150-400) K/uL MPV (7.40-12.00) fL Neutrophils % (Manual) (48.0-80.0) % Band Neutrophils % % Lymphocytes % (Manual) (16.0-40.0) % Monocytes % (Manual) (0.0-15.0) % Nucleated RBC % /100WBC Absolute Seg Neuts (1.4-5.7) Band Neutrophils # Lymphocytes # (Manual) (0.6-2.4) Monocytes # (Manual) (0.0-0.8) Lactate (0.20-2.00) mmol/L Sodium (136-145) mmol/L Potassium (3.5-5.1) mmol/L Chloride (98-107) mmol/L Carbon Dioxide (21.0-32.0) mmol/L BUN (7.0-18.0) mg/dL Creatinine (0.6-1.0) mg/dL Est Cr Clr Drug Dosing mL/min Estimated GFR (MDRD) ml/min Glucose (74-106) mg/dL Calcium (8.5-10.1) mg/dL Total Bilirubin (0.2-1.0) mg/dL AST (15-37) IU/L ALT (14-63) IU/L Alkaline Phosphatase (46-116) U/L Total Protein (6.4-8.2) g/dL Albumin (3.4-5.0) g/dL Globulin (2.6-4.0) g/dL Albumin/Globulin Ratio (0.9-1.6) Urine Color Urine Appearance Urine pH (5.0-8.0) Ur Specific Robards (1.001-1.035) Urine Protein (NEGATIVE) mg/dL Urine Glucose (UA) (NEGATIVE) mg/dL Urine Ketones (NEGATIVE) mg/dL Urine Occult Blood (NEGATIVE) Urine Nitrite (NEGATIVE) Urine Bilirubin (NEGATIVE) Urine Urobilinogen (<2.0) EU/dL Ur Leukocyte Esterase (NEGATIVE) Urine RBC (0-2/HPF) Urine WBC (0-5/HPF) Ur Epithelial Cells (NONE-FEW) Urine Bacteria (NEGATIVE) Random Gentamicin 1.5 L (2.0-10.0) ug/mL COVID-19 (ANA) (NEGATIVE) Med Orders - Current: Current Medications Acetaminophen (Tylenol Extra Strength) 500 mg PO Q4H PRN PRN Reason: Pain Last Admin: 07/03/20 05:36 Dose: 500 mg Documented by: Acetaminophen (Tylenol Extra Strength) 1,000 mg PO Q4H PRN PRN Reason: Pain Last Admin: 07/02/20 19:37 Dose: 1,000 mg Documented by: Benzocaine/Menthol (Dermoplast Pain Relief 20%-0.5% [place]) 78 gm TOP ASDIRECTED PRN PRN Reason: Perineal Comfort Measure Last Admin: 07/01/20 05:09 Dose: 1 spray Documented by: Bisacodyl (Dulcolax) 10 mg RECTAL ONETIME PRN PRN Reason: Constipation Docusate Sodium (Colace) 100 mg PO BID PRN PRN Reason: Constipation Emollient Ointment (Lansinoh Hpa) 0 gm TOP ASDIRECTED PRN PRN Reason: Sore Nipples Gentamicin Sulfate (Pharmacy To Dose - Gentamicin) 1 dose .XX ASDIRECTED [facility] Ampicillin Sodium/Sulbactam (Sodium 3 gm/ Sodium Chloride) 100 mls @ 200 mls/hr IV Q6H [facility] Last Admin: 07/03/20 06:57 Dose: 200 mls/hr Documented by: Lactated Ringer's (Ringers, Lactated) 1,000 mls @ 120 mls/hr IV ASDIRECTED [facility] Last Admin: 07/02/20 08:19 Dose: 120 mls/hr Documented by: Gentamicin Sulfate 350 mg/ (Sodium Chloride) 108.75 mls @ 108.75 mls/hr IV Q24H [facility] Last Admin: 07/02/20 21:41 Dose: 108.75 mls/hr Documented by: Clindamycin Phosphate 600 mg/ (Premix) 50 mls @ 100 mls/hr IV Q6H [facility] Last Admin: 07/03/20 05:01 Dose: 100 mls/hr Documented by: Ibuprofen (Motrin) 400 mg PO Q4H PRN PRN Reason: Pain Ibuprofen (Motrin) 800 mg PO Q6H PRN PRN Reason: Pain Oxycodone HCl (Oxycodone) 5 mg PO Q2H PRN PRN Reason: Pain Witch Sherin (Tucks) 1 pad TOP ASDIRECTED PRN PRN Reason: comfort care Last Admin: 07/01/20 05:09 Dose: 1 pad Documented by: Discontinued Medications Butorphanol Tartrate (Stadol) 1 mg IVPUSH Q1H PRN PRN Reason: Pain Last Admin: 06/30/20 09:41 Dose: 1 mg Documented by: Carboprost Tromethamine (Hemabate Ds) 250 mcg IM ASDIRECTED PRN PRN Reason: Post Hemorrhage Fentanyl (Sublimaze) Confirm Administered Dose 200 mcg .ROUTE .STK-MED ONE Stop: 06/30/20 10:20 Oxytocin/Sodium Chloride (Oxytocin 30 Unit/500 Ml-Ns) 30 unit in 500 mls @ 500 mls/hr IV TITRATE SKYLER Last Admin: 07/01/20 03:38 Dose: 500 mls/hr Documented by: Tranexamic Acid 1,000 mg/ (Sodium Chloride) 110 mls @ 660 mls/hr IV ONETIME PRN PRN Reason: Bleeding Lactated Ringer's (Ringers, Lactated) 1,000 mls @ 150 mls/hr IV ASDIRECTED SKYLER Last Infusion: 06/30/20 10:56 Dose: 150 mls/hr Documented by: Oxytocin/Sodium Chloride (Oxytocin 30 Unit/500 Ml-Ns) 30 unit in 500 mls @ 2 mls/hr IV TITRATE SKYLER; Protocol Last Titration: 06/30/20 23:51 Dose: 28 munits/min, 28 mls/hr Documented by: Ropivacaine (Naropin 0.2%) Confirm Administered Dose 100 mls @ as directed .ROUTE .STK-MED ONE Stop: 06/30/20 10:20 Fentanyl/Bupivacaine HCl (Fentanyl/Bupivacaine/Ns 2 Mcg-0.125% 250 Ml) Confirm Administered Dose 250 mls @ as directed .ROUTE .STK-MED ONE Stop: 06/30/20 23:22 Ampicillin Sodium/Sulbactam (Sodium 3 gm/ Sodium Chloride) 100 mls @ 200 mls/hr IV Q6H [facility] Last Admin: 07/01/20 19:05 Dose: 200 mls/hr Documented by: Sodium Chloride (Normal Saline (Advbag)) Confirm Administered Dose 250 mls @ as directed .ROUTE .STK-MED ONE Stop: 07/01/20 18:16 Sodium Chloride (Normal Saline) 1,000 mls @ 999 mls/hr IV .Bolus ONE Stop: 07/02/20 18:45 Last Admin: 07/02/20 18:08 Dose: 999 mls/hr Documented by: Clindamycin Phosphate 600 mg/ (Sodium Chloride) 54 mls @ 150 mls/hr IV Q6H SKYLER Clindamycin Phosphate 600 mg/ (Premix) 50 mls @ 100 mls/hr IV Q6H SKYLER Last Admin: 07/02/20 23:04 Dose: 100 mls/hr Documented by: Lidocaine HCl (Xylocaine 1%) 50 ml INJECT ONETIME PRN PRN Reason: Laceration repair Methylergonovine Maleate (Methergine) 0.2 mg IM ASDIRECTED PRN PRN Reason: Post Hemorrhage Misoprostol (Cytotec) 200 mcg PO ONETIME PRN PRN Reason: Post Hemorrhage Misoprostol (Cytotec) 25 mcg VAG ONETIME PRN PRN Reason: Cervical Ripening Last Admin: 06/29/20 13:31 Dose: 25 mcg Documented by: Misoprostol (Cytotec) 25 mcg VAG Q4H PRN PRN Reason: Cervical Ripening Last Admin: 06/30/20 08:59 Dose: 25 mcg Documented by: Nalbuphine HCl (Nubain) 10 mg IVPUSH Q1H PRN PRN Reason: Pain (severe 7-10) Ondansetron HCl (Zofran) 4 mg IVPUSH Q4H PRN PRN Reason: Vomiting Last Admin: 06/30/20 21:19 Dose: 4 mg Documented by: Sodium Chloride (Saline Flush) 10 ml FLUSH ASDIRECTED PRN PRN Reason: Keep Vein Open Sodium Chloride (Saline Flush) 2.5 ml FLUSH ASDIRECTED PRN PRN Reason: Keep Vein Open Sodium Chloride (Normal Saline) 10 ml IV ASDIRECTED PRN PRN Reason: IV Use Sterile Water (Sterile Water For Irrigation) 1,000 ml IRR ASDIRECTED PRN PRN Reason: delivery Terbutaline Sulfate (Brethine) 0.25 mg SUBCUT ASDIRECTED PRN PRN Reason: Tacysystole - Exam General: Alert, Oriented HEENT: Pupils Equal, Pupils Reactive, EOMI Neck: Supple Lungs: Clear to Auscultation, Normal Respiratory Effort Cardiovascular: Regular Rate, Regular Rhythm GI/Abdominal Exam: Normal Bowel Sounds, Soft, Non-Tender, No Distention, No Mass Back Exam: Normal Inspection Extremities: Normal Inspection, Non-Tender, No Pedal Edema, Normal Capillary Refill Peripheral Pulses: 2+: Radial (L), Radial (R), Posterior Tibial (L), Posterior Tibial (R), Dorsalis Pedis (L), Dorsalis Pedis (R) Skin: Warm, Dry, Intact Wound/Incisions: Healing Well Neurological: No New Focal Deficit Psy/Mental Status: Alert, Normal Affect, Normal Mood Sepsis Event Note - Evaluation Sepsis Screening Result: Sepsis Risk Possible Source of Sepsis: Genitourinary - Focused Exam Vital Signs: Vital Signs Temp Temp Pulse Resp BP Pulse Ox 07/03/20 06:50 97.5 F 07/03/20 05:36 99.5 F 07/03/20 04:00 99.5 F 80 16 119/58 L 95 07/03/20 01:30 119/79 07/03/20 00:56 96.6 F L 75 16 99/53 L 95 07/02/20 21:45 98.0 F 07/02/20 20:25 99.8 F 110 H 18 109/53 L 95 07/02/20 20:10 105 H 107/57 L 07/02/20 20:07 99.8 F Capillary Refill, Detail: Less than/Equal to (</=) 2 Seconds Pulse Description: 2+ Normal Peripheral Pulse Location: Posterior Tibial Skin Exam (Focused Sepsis): Unremarkable Date Exam was Performed: 07/03/20 Time Exam was Performed: 10:37 - Bedside Monitoring Passive Leg Raise/Fluid Bolus: Not Performed Date Bedside Monitoring was Performed: 07/03/20 Time Bedside Monitoring was Performed: 10:37 - Problem List & Annotations (1) Status post vaginal delivery SNOMED Code(s): 383380328, 067364964, 210770183 Code(s): SOF3658 - Status: Acute Current Visit: Yes (2) Iron deficiency anemia SNOMED Code(s): 82063139 Code(s): D50.9 - IRON DEFICIENCY ANEMIA, UNSPECIFIED Status: Acute Current Visit: Yes (3) fever SNOMED Code(s): 981632986, 627881145 Code(s): O86.4 - PYREXIA OF UNKNOWN ORIGIN FOLLOWING DELIVERY Status: Acute Current Visit: Yes - Problem List Review Problem List Initiated/Reviewed/Updated: Yes - Assessment Assessment:: Status post day 2 of male weighing 7lbs 2 ounces to a 24 year old female who was induced for postdates. Apgars 8/8. fever day 1, received 3 doses of ampicillin/sulbactam 3 grams. Sepsis protocol was initiated and patient was stated on gentamicin 350 mg and Clindamycin 600 mg. Today WBC has decreased from 14.14 to 10.97, she has remained afebrile with Tylenol uses and heart rate has been less than 100.4. Chest xray demonstrated no abnormalities. UA demonstrated positive leukocyte esterase, trace protein, 1+ bacteria and occult blood. - Plan Plan:: 1. fever - CBC, UA, lactic acid, Chest Xray, Blood cultures x 2, Covid Test ordered in agreement with sepsis core measurement requirements. WBC decreased today from 14.14 to 10.97, chest xray was unremarkable, covid test was negative, lactic acid levels were 0.7. UA demonstrated positive leukocyte esterase, trace protein, 1+ bacteria and occult blood. 2. Continue ampicillin-sulbactam 3 g - patient has received 6 doses 3. IV bolus at 30 mL/kg NS per sepsis protocol 4. Monitor vitals 5. Gentamicin 350 mg and Clindamycin 600 mg were ordered yesterday to improve gram negative and anaerobic coverage. Patient has received one dose of each 6. Discharge home with precautions when patient is 24 hours fever free and has received Gentamicin and Clindamycin for 24 hours; discussed with patient possibly going home tomorrow morning 7. and bottle feeding - patient doing well 8. Continue care per unit routine <Michelle López - Last Filed: 07/03/20 13:10> - Patient Data Vitals - Most Recent: Last Vital Signs Temp 36.4 C 07/03/20 08:00 Pulse 82 07/03/20 08:00 Resp 14 07/03/20 08:00 BP 113/60 07/03/20 08:00 Pulse Ox 97 07/03/20 08:00 Lab Results Last 24 Hours: Laboratory Results - last 24 hr 07/02/20 07/02/20 07/02/20 Range/Units 18:08 18:08 18:08 WBC 14.14 H (4.0-11.0) K/uL RBC 3.65 L (4.30-5.90) M/uL Hgb 10.7 L (12.0-16.0) g/dL Hct 33.2 L (36.0-46.0) % MCV 91.0 (80.0-98.0) fL MCH 29.3 (27.0-32.0) pg MCHC 32.2 (31.0-37.0) g/dL RDW Std Deviation 63.0 H (28.0-62.0) fl RDW Coeff of Lissa 19 H (11.0-15.0) % Plt Count 136 L (150-400) K/uL MPV 10.60 (7.40-12.00) fL Neutrophils % (Manual) 65 (48.0-80.0) % Band Neutrophils % 23 % Lymphocytes % (Manual) 10 L (16.0-40.0) % Monocytes % (Manual) 2 (0.0-15.0) % Nucleated RBC % 0.0 /100WBC Absolute Seg Neuts 9.2 H (1.4-5.7) Band Neutrophils # 3.3 Lymphocytes # (Manual) 1.4 (0.6-2.4) Monocytes # (Manual) 0.3 (0.0-0.8) Lactate 0.7 (0.20-2.00) mmol/L Sodium 136 (136-145) mmol/L Potassium 3.7 (3.5-5.1) mmol/L Chloride 102 (98-107) mmol/L Carbon Dioxide 26.2 (21.0-32.0) mmol/L BUN 7 (7.0-18.0) mg/dL Creatinine 0.6 (0.6-1.0) mg/dL Est Cr Clr Drug Dosing 143.02 mL/min Estimated GFR (MDRD) > 60.0 ml/min Glucose 79 (74-106) mg/dL Calcium 8.0 L (8.5-10.1) mg/dL Total Bilirubin 0.3 (0.2-1.0) mg/dL AST 24 (15-37) IU/L ALT 17 (14-63) IU/L Alkaline Phosphatase 89 (46-116) U/L Total Protein 6.4 (6.4-8.2) g/dL Albumin 2.3 L (3.4-5.0) g/dL Globulin 4.1 H (2.6-4.0) g/dL Albumin/Globulin Ratio 0.6 L (0.9-1.6) Urine Color Urine Appearance Urine pH (5.0-8.0) Ur Specific Robards (1.001-1.035) Urine Protein (NEGATIVE) mg/dL Urine Glucose (UA) (NEGATIVE) mg/dL Urine Ketones (NEGATIVE) mg/dL Urine Occult Blood (NEGATIVE) Urine Nitrite (NEGATIVE) Urine Bilirubin (NEGATIVE) Urine Urobilinogen (<2.0) EU/dL Ur Leukocyte Esterase (NEGATIVE) Urine RBC (0-2/HPF) Urine WBC (0-5/HPF) Ur Epithelial Cells (NONE-FEW) Urine Bacteria (NEGATIVE) Random Gentamicin (2.0-10.0) ug/mL COVID-19 (ANA) (NEGATIVE) 07/02/20 07/02/20 07/03/20 Range/Units 18:31 19:48 06:15 WBC 10.97 (4.0-11.0) K/uL RBC 3.73 L (4.30-5.90) M/uL Hgb 10.8 L (12.0-16.0) g/dL Hct 33.8 L (36.0-46.0) % MCV 90.6 (80.0-98.0) fL MCH 29.0 (27.0-32.0) pg MCHC 32.0 (31.0-37.0) g/dL RDW Std Deviation 62.5 H (28.0-62.0) fl RDW Coeff of Lissa 19 H (11.0-15.0) % Plt Count 142 L (150-400) K/uL MPV 10.70 (7.40-12.00) fL Neutrophils % (Manual) 61 (48.0-80.0) % Band Neutrophils % 31 % Lymphocytes % (Manual) 5 L (16.0-40.0) % Monocytes % (Manual) 3 (0.0-15.0) % Nucleated RBC % 0.0 /100WBC Absolute Seg Neuts 6.7 H (1.4-5.7) Band Neutrophils # 3.4 Lymphocytes # (Manual) 0.5 L (0.6-2.4) Monocytes # (Manual) 0.3 (0.0-0.8) Lactate (0.20-2.00) mmol/L Sodium (136-145) mmol/L Potassium (3.5-5.1) mmol/L Chloride (98-107) mmol/L Carbon Dioxide (21.0-32.0) mmol/L BUN (7.0-18.0) mg/dL Creatinine (0.6-1.0) mg/dL Est Cr Clr Drug Dosing mL/min Estimated GFR (MDRD) ml/min Glucose (74-106) mg/dL Calcium (8.5-10.1) mg/dL Total Bilirubin (0.2-1.0) mg/dL AST (15-37) IU/L ALT (14-63) IU/L Alkaline Phosphatase (46-116) U/L Total Protein (6.4-8.2) g/dL Albumin (3.4-5.0) g/dL Globulin (2.6-4.0) g/dL Albumin/Globulin Ratio (0.9-1.6) Urine Color YELLOW Urine Appearance CLOUDY Urine pH 8.0 (5.0-8.0) Ur Specific Robards 1.010 (1.001-1.035) Urine Protein TRACE H (NEGATIVE) mg/dL Urine Glucose (UA) NEGATIVE (NEGATIVE) mg/dL Urine Ketones NEGATIVE (NEGATIVE) mg/dL Urine Occult Blood LARGE H (NEGATIVE) Urine Nitrite NEGATIVE (NEGATIVE) Urine Bilirubin NEGATIVE (NEGATIVE) Urine Urobilinogen 1.0 (<2.0) EU/dL Ur Leukocyte Esterase LARGE H (NEGATIVE) Urine RBC 3-5 (0-2/HPF) Urine WBC 8-10 (0-5/HPF) Ur Epithelial Cells OCCASIONAL (NONE-FEW) Urine Bacteria 1+ H (NEGATIVE) Random Gentamicin (2.0-10.0) ug/mL COVID-19 (ANA) NEGATIVE (NEGATIVE) 07/03/20 Range/Units 06:15 WBC (4.0-11.0) K/uL RBC (4.30-5.90) M/uL Hgb (12.0-16.0) g/dL Hct (36.0-46.0) % MCV (80.0-98.0) fL MCH (27.0-32.0) pg MCHC (31.0-37.0) g/dL RDW Std Deviation (28.0-62.0) fl RDW Coeff of Lissa (11.0-15.0) % Plt Count (150-400) K/uL MPV (7.40-12.00) fL Neutrophils % (Manual) (48.0-80.0) % Band Neutrophils % % Lymphocytes % (Manual) (16.0-40.0) % Monocytes % (Manual) (0.0-15.0) % Nucleated RBC % /100WBC Absolute Seg Neuts (1.4-5.7) Band Neutrophils # Lymphocytes # (Manual) (0.6-2.4) Monocytes # (Manual) (0.0-0.8) Lactate (0.20-2.00) mmol/L Sodium (136-145) mmol/L Potassium (3.5-5.1) mmol/L Chloride (98-107) mmol/L Carbon Dioxide (21.0-32.0) mmol/L BUN (7.0-18.0) mg/dL Creatinine (0.6-1.0) mg/dL Est Cr Clr Drug Dosing mL/min Estimated GFR (MDRD) ml/min Glucose (74-106) mg/dL Calcium (8.5-10.1) mg/dL Total Bilirubin (0.2-1.0) mg/dL AST (15-37) IU/L ALT (14-63) IU/L Alkaline Phosphatase (46-116) U/L Total Protein (6.4-8.2) g/dL Albumin (3.4-5.0) g/dL Globulin (2.6-4.0) g/dL Albumin/Globulin Ratio (0.9-1.6) Urine Color Urine Appearance Urine pH (5.0-8.0) Ur Specific Robards (1.001-1.035) Urine Protein (NEGATIVE) mg/dL Urine Glucose (UA) (NEGATIVE) mg/dL Urine Ketones (NEGATIVE) mg/dL Urine Occult Blood (NEGATIVE) Urine Nitrite (NEGATIVE) Urine Bilirubin (NEGATIVE) Urine Urobilinogen (<2.0) EU/dL Ur Leukocyte Esterase (NEGATIVE) Urine RBC (0-2/HPF) Urine WBC (0-5/HPF) Ur Epithelial Cells (NONE-FEW) Urine Bacteria (NEGATIVE) Random Gentamicin 1.5 L (2.0-10.0) ug/mL COVID-19 (ANA) (NEGATIVE) Med Orders - Current: Current Medications Acetaminophen (Tylenol Extra Strength) 500 mg PO Q4H PRN PRN Reason: Pain Last Admin: 07/03/20 05:36 Dose: 500 mg Documented by: Acetaminophen (Tylenol Extra Strength) 1,000 mg PO Q4H PRN PRN Reason: Pain Last Admin: 07/02/20 19:37 Dose: 1,000 mg Documented by: Benzocaine/Menthol (Dermoplast Pain Relief 20%-0.5% [place]) 78 gm TOP ASDIRECTED PRN PRN Reason: Perineal Comfort Measure Last Admin: 07/01/20 05:09 Dose: 1 spray Documented by: Bisacodyl (Dulcolax) 10 mg RECTAL ONETIME PRN PRN Reason: Constipation Docusate Sodium (Colace) 100 mg PO BID PRN PRN Reason: Constipation Emollient Ointment (Lansinoh Hpa) 0 gm TOP ASDIRECTED PRN PRN Reason: Sore Nipples Gentamicin Sulfate (Pharmacy To Dose - Gentamicin) 1 dose .XX ASDIRECTED [facility] Ampicillin Sodium/Sulbactam (Sodium 3 gm/ Sodium Chloride) 100 mls @ 200 mls/hr IV Q6H [facility] Last Admin: 07/03/20 13:06 Dose: 200 mls/hr Documented by: Lactated Ringer's (Ringers, Lactated) 1,000 mls @ 120 mls/hr IV ASDIRECTED [facility] Last Admin: 07/02/20 08:19 Dose: 120 mls/hr Documented by: Gentamicin Sulfate 350 mg/ (Sodium Chloride) 108.75 mls @ 108.75 mls/hr IV Q24H [facility] Last Admin: 07/02/20 21:41 Dose: 108.75 mls/hr Documented by: Clindamycin Phosphate 600 mg/ (Premix) 50 mls @ 100 mls/hr IV Q6H [facility] Last Admin: 07/03/20 11:00 Dose: 100 mls/hr Documented by: Ibuprofen (Motrin) 400 mg PO Q4H PRN PRN Reason: Pain Ibuprofen (Motrin) 800 mg PO Q6H PRN PRN Reason: Pain Oxycodone HCl (Oxycodone) 5 mg PO Q2H PRN PRN Reason: Pain Witch Sherin (Tucks) 1 pad TOP ASDIRECTED PRN PRN Reason: comfort care Last Admin: 07/01/20 05:09 Dose: 1 pad Documented by: Discontinued Medications Butorphanol Tartrate (Stadol) 1 mg IVPUSH Q1H PRN PRN Reason: Pain Last Admin: 06/30/20 09:41 Dose: 1 mg Documented by: Carboprost Tromethamine (Hemabate Ds) 250 mcg IM ASDIRECTED PRN PRN Reason: Post Hemorrhage Fentanyl (Sublimaze) Confirm Administered Dose 200 mcg .ROUTE .STK-MED ONE Stop: 06/30/20 10:20 Oxytocin/Sodium Chloride (Oxytocin 30 Unit/500 Ml-Ns) 30 unit in 500 mls @ 500 mls/hr IV TITRATE SKYLER Last Admin: 07/01/20 03:38 Dose: 500 mls/hr Documented by: Tranexamic Acid 1,000 mg/ (Sodium Chloride) 110 mls @ 660 mls/hr IV ONETIME PRN PRN Reason: Bleeding Lactated Ringer's (Ringers, Lactated) 1,000 mls @ 150 mls/hr IV ASDIRECTED SKYLER Last Infusion: 06/30/20 10:56 Dose: 150 mls/hr Documented by: Oxytocin/Sodium Chloride (Oxytocin 30 Unit/500 Ml-Ns) 30 unit in 500 mls @ 2 mls/hr IV TITRATE SKYLER; Protocol Last Titration: 06/30/20 23:51 Dose: 28 munits/min, 28 mls/hr Documented by: Ropivacaine (Naropin 0.2%) Confirm Administered Dose 100 mls @ as directed .ROUTE .STK-MED ONE Stop: 06/30/20 10:20 Fentanyl/Bupivacaine HCl (Fentanyl/Bupivacaine/Ns 2 Mcg-0.125% 250 Ml) Confirm Administered Dose 250 mls @ as directed .ROUTE .STK-MED ONE Stop: 06/30/20 23:22 Ampicillin Sodium/Sulbactam (Sodium 3 gm/ Sodium Chloride) 100 mls @ 200 mls/hr IV Q6H SKYLER Last Admin: 07/01/20 19:05 Dose: 200 mls/hr Documented by: Sodium Chloride (Normal Saline (Advbag)) Confirm Administered Dose 250 mls @ as directed .ROUTE .STK-MED ONE Stop: 07/01/20 18:16 Sodium Chloride (Normal Saline) 1,000 mls @ 999 mls/hr IV .Bolus ONE Stop: 07/02/20 18:45 Last Admin: 07/02/20 18:08 Dose: 999 mls/hr Documented by: Clindamycin Phosphate 600 mg/ (Sodium Chloride) 54 mls @ 150 mls/hr IV Q6H [facility] Clindamycin Phosphate 600 mg/ (Premix) 50 mls @ 100 mls/hr IV Q6H [facility] Last Admin: 07/02/20 23:04 Dose: 100 mls/hr Documented by: Lidocaine HCl (Xylocaine 1%) 50 ml INJECT ONETIME PRN PRN Reason: Laceration repair Methylergonovine Maleate (Methergine) 0.2 mg IM ASDIRECTED PRN PRN Reason: Post Hemorrhage Misoprostol (Cytotec) 200 mcg PO ONETIME PRN PRN Reason: Post Hemorrhage Misoprostol (Cytotec) 25 mcg VAG ONETIME PRN PRN Reason: Cervical Ripening Last Admin: 06/29/20 13:31 Dose: 25 mcg Documented by: Misoprostol (Cytotec) 25 mcg VAG Q4H PRN PRN Reason: Cervical Ripening Last Admin: 06/30/20 08:59 Dose: 25 mcg Documented by: Nalbuphine HCl (Nubain) 10 mg IVPUSH Q1H PRN PRN Reason: Pain (severe 7-10) Ondansetron HCl (Zofran) 4 mg IVPUSH Q4H PRN PRN Reason: Vomiting Last Admin: 06/30/20 21:19 Dose: 4 mg Documented by: Sodium Chloride (Saline Flush) 10 ml FLUSH ASDIRECTED PRN PRN Reason: Keep Vein Open Sodium Chloride (Saline Flush) 2.5 ml FLUSH ASDIRECTED PRN PRN Reason: Keep Vein Open Sodium Chloride (Normal Saline) 10 ml IV ASDIRECTED PRN PRN Reason: IV Use Sterile Water (Sterile Water For Irrigation) 1,000 ml IRR ASDIRECTED PRN PRN Reason: delivery Terbutaline Sulfate (Brethine) 0.25 mg SUBCUT ASDIRECTED PRN PRN Reason: Tacysystole Sepsis Event Note - Focused Exam Vital Signs: Vital Signs Temp Temp Temp Pulse Resp BP Pulse Ox 07/03/20 08:00 35.9 C L 36.4 C 82 14 113/60 97 07/03/20 06:50 36.4 C 07/03/20 05:36 37.5 C 07/03/20 04:00 37.5 C 80 16 119/58 L 95 07/03/20 01:30 119/79 Date Exam was Performed: 07/03/20 Time Exam was Performed: 13:09 - Problem List Review Problem List Initiated/Reviewed/Updated: Yes - My Orders Last 24 Hours: My Active Orders 07/02/20 17:45 Blood Culture x2 Reflex Set [OM.PC] Stat Severe Sepsis Onset Time [OM.PC] Stat 07/02/20 17:46 Blood Pressure Mgt: Sepsis [RC] [id number] 07/02/20 18:08 CULTURE BLOOD [BC] Stat 07/02/20 18:18 CULTURE BLOOD [BC] Stat 07/02/20 19:45 Pharmacy to Dose - Gentamicin 1 dose .XX ASDIRECTED 07/02/20 21:00 Gentamicin 350 mg Sodium Chloride 0.9% [Normal Saline] 100 ml IV Q24H 07/03/20 05:00 Clindamycin Phosphate in D5W [Cleocin in D5W] 600 mg Premix Bag 1 bag IV Q6H 07/06/20 05:11 GENTAMICIN RANDOM [CHEM] AM - Plan Plan:: Patient was seen and examined by me and I agree with above. Continue a ntibiotics to complete 24 hours of broad spectrum regimen, anticipate discharge tomorrow.
[2020-07-04] MEDS: Ampicillin/Sulbactam Na 3 GM in Sodium Chloride 0.9% 100 ML IV SCH ×2 (01:09→07:22)
[2020-07-04] MEDS: Clindamycin Phosphate in D5W 600 MG in Premix Bag 1 BAG IV SCH ×2 (05:17)
--- NOTE | 2020-07-04 08:48 | PCM.PNPP ---
- General Info Date of Service: 07/04/20 Functional Status: Reports: Pain Controlled, Tolerating Diet, Ambulating, Urinating, Other (feeling much better, no cough, nasal congestion or pain, working on .) - Review of Systems General: Reports: No Symptoms HEENT: Reports: No Symptoms Pulmonary: Reports: No Symptoms Cardiovascular: Reports: No Symptoms Gastrointestinal: Reports: No Symptoms Genitourinary: Reports: No Symptoms Musculoskeletal: Reports: No Symptoms Skin: Reports: No Symptoms Neurological: Reports: No Symptoms Psychiatric: Reports: No Symptoms - Patient Data Vital Signs - Most Recent: Last Vital Signs Temp 36.4 C 07/04/20 07:00 Pulse 74 07/04/20 07:00 Resp 16 07/04/20 07:00 BP 114/62 07/04/20 07:00 Pulse Ox 98 07/04/20 07:00 Weight - Most Recent: 78.471 kg Micro Results - Last 24 Hours: Microbiology 07/02/20 18:18 Aerobic Blood Culture - Preliminary Blood - Venous - Lab Draw NO GROWTH AFTER 1 DAY Anaerobic Blood Culture - Preliminary NO GROWTH AFTER 1 DAY 07/02/20 18:08 Aerobic Blood Culture - Preliminary Blood - Venous NO GROWTH AFTER 1 DAY Anaerobic Blood Culture - Preliminary NO GROWTH AFTER 1 DAY Med Orders - Current: Current Medications Acetaminophen (Tylenol Extra Strength) 500 mg PO Q4H PRN PRN Reason: Pain Last Admin: 07/03/20 05:36 Dose: 500 mg Documented by: Acetaminophen (Tylenol Extra Strength) 1,000 mg PO Q4H PRN PRN Reason: Pain Last Admin: 07/02/20 19:37 Dose: 1,000 mg Documented by: Benzocaine/Menthol (Dermoplast Pain Relief 20%-0.5% [place]) 78 gm TOP ASDIRECTED PRN PRN Reason: Perineal Comfort Measure Last Admin: 07/01/20 05:09 Dose: 1 spray Documented by: Bisacodyl (Dulcolax) 10 mg RECTAL ONETIME PRN PRN Reason: Constipation Docusate Sodium (Colace) 100 mg PO BID PRN PRN Reason: Constipation Emollient Ointment (Lansinoh Hpa) 0 gm TOP ASDIRECTED PRN PRN Reason: Sore Nipples Gentamicin Sulfate (Pharmacy To Dose - Gentamicin) 1 dose .XX ASDIRECTED [place] Ampicillin Sodium/Sulbactam (Sodium 3 gm/ Sodium Chloride) 100 mls @ 200 mls/hr IV Q6H [facility] Last Admin: 07/04/20 07:22 Dose: 200 mls/hr Documented by: Lactated Ringer's (Ringers, Lactated) 1,000 mls @ 120 mls/hr IV ASDIRECTED [facility] Last Admin: 07/02/20 08:19 Dose: 120 mls/hr Documented by: Gentamicin Sulfate 350 mg/ (Sodium Chloride) 108.75 mls @ 108.75 mls/hr IV Q24H [facility] Last Admin: 07/03/20 20:58 Dose: 108.75 mls/hr Documented by: Clindamycin Phosphate 600 mg/ (Premix) 50 mls @ 100 mls/hr IV Q6H [facility] Last Admin: 07/04/20 05:17 Dose: 100 mls/hr Documented by: Ibuprofen (Motrin) 400 mg PO Q4H PRN PRN Reason: Pain Ibuprofen (Motrin) 800 mg PO Q6H PRN PRN Reason: Pain Oxycodone HCl (Oxycodone) 5 mg PO Q2H PRN PRN Reason: Pain Witch Sherin (Tucks) 1 pad TOP ASDIRECTED PRN PRN Reason: comfort care Last Admin: 07/01/20 05:09 Dose: 1 pad Documented by: Discontinued Medications Butorphanol Tartrate (Stadol) 1 mg IVPUSH Q1H PRN PRN Reason: Pain Last Admin: 06/30/20 09:41 Dose: 1 mg Documented by: Carboprost Tromethamine (Hemabate Ds) 250 mcg IM ASDIRECTED PRN PRN Reason: Post Hemorrhage Fentanyl (Sublimaze) Confirm Administered Dose 200 mcg .ROUTE .STK-MED ONE Stop: 06/30/20 10:20 Oxytocin/Sodium Chloride (Oxytocin 30 Unit/500 Ml-Ns) 30 unit in 500 mls @ 500 mls/hr IV TITRATE [facility] Last Admin: 07/01/20 03:38 Dose: 500 mls/hr Documented by: Tranexamic Acid 1,000 mg/ (Sodium Chloride) 110 mls @ 660 mls/hr IV ONETIME PRN PRN Reason: Bleeding Lactated Ringer's (Ringers, Lactated) 1,000 mls @ 150 mls/hr IV ASDIRECTED [facility] Last Infusion: 06/30/20 10:56 Dose: 150 mls/hr Documented by: Oxytocin/Sodium Chloride (Oxytocin 30 Unit/500 Ml-Ns) 30 unit in 500 mls @ 2 mls/hr IV TITRATE [facility]; Protocol Last Titration: 06/30/20 23:51 Dose: 28 munits/min, 28 mls/hr Documented by: Ropivacaine (Naropin 0.2%) Confirm Administered Dose 100 mls @ as directed .ROUTE .STK-MED ONE Stop: 06/30/20 10:20 Fentanyl/Bupivacaine HCl (Fentanyl/Bupivacaine/Ns 2 Mcg-0.125% 250 Ml) Confirm Administered Dose 250 mls @ as directed .ROUTE .STK-MED ONE Stop: 06/30/20 23:22 Ampicillin Sodium/Sulbactam (Sodium 3 gm/ Sodium Chloride) 100 mls @ 200 mls/hr IV Q6H [facility] Last Admin: 07/01/20 19:05 Dose: 200 mls/hr Documented by: Sodium Chloride (Normal Saline (Advbag)) Confirm Administered Dose 250 mls @ as directed .ROUTE .STK-MED ONE Stop: 07/01/20 18:16 Sodium Chloride (Normal Saline) 1,000 mls @ 999 mls/hr IV .Bolus ONE Stop: 07/02/20 18:45 Last Admin: 07/02/20 18:08 Dose: 999 mls/hr Documented by: Clindamycin Phosphate 600 mg/ (Sodium Chloride) 54 mls @ 150 mls/hr IV Q6H [facility] Clindamycin Phosphate 600 mg/ (Premix) 50 mls @ 100 mls/hr IV Q6H [facility] Last Admin: 07/02/20 23:04 Dose: 100 mls/hr Documented by: Lidocaine HCl (Xylocaine 1%) 50 ml INJECT ONETIME PRN PRN Reason: Laceration repair Methylergonovine Maleate (Methergine) 0.2 mg IM ASDIRECTED PRN PRN Reason: Post Hemorrhage Misoprostol (Cytotec) 200 mcg PO ONETIME PRN PRN Reason: Post Hemorrhage Misoprostol (Cytotec) 25 mcg VAG ONETIME PRN PRN Reason: Cervical Ripening Last Admin: 06/29/20 13:31 Dose: 25 mcg Documented by: Misoprostol (Cytotec) 25 mcg VAG Q4H PRN PRN Reason: Cervical Ripening Last Admin: 06/30/20 08:59 Dose: 25 mcg Documented by: Nalbuphine HCl (Nubain) 10 mg IVPUSH Q1H PRN PRN Reason: Pain (severe 7-10) Ondansetron HCl (Zofran) 4 mg IVPUSH Q4H PRN PRN Reason: Vomiting Last Admin: 06/30/20 21:19 Dose: 4 mg Documented by: Sodium Chloride (Saline Flush) 10 ml FLUSH ASDIRECTED PRN PRN Reason: Keep Vein Open Sodium Chloride (Saline Flush) 2.5 ml FLUSH ASDIRECTED PRN PRN Reason: Keep Vein Open Sodium Chloride (Normal Saline) 10 ml IV ASDIRECTED PRN PRN Reason: IV Use Sterile Water (Sterile Water For Irrigation) 1,000 ml IRR ASDIRECTED PRN PRN Reason: delivery Terbutaline Sulfate (Brethine) 0.25 mg SUBCUT ASDIRECTED PRN PRN Reason: Tacysystole - Infant Interaction Disposition, : [place] at Bedside Infant Interaction: Other (see below) ( sleeping in crib) Feeding: Attempted ; Nursed Fair/Poor, Bottle Fed Infant, Encouraged to Breastfeed Support Person: Other (see below) - Recovery Exam Fundal Tone: Firm Fundal Level: 2 Fingerbreadths Below Umbilicus Fundal Placement: Midline Lochia Amount: Scant Lochia Color: Rubra/Red Perineum Description: Edematous Episiotomy/Laceration: Approximated Bladder Status: Voiding - Exam General: Alert, Oriented Lungs: Normal Respiratory Effort GI/Abdominal Exam: Soft, Non-Tender, No Distention Extremities: Normal Inspection, Non-Tender, No Pedal Edema Neurological: No New Focal Deficit - Problem List Review Problem List Initiated/Reviewed/Updated: Yes - My Orders Last 24 Hours: My Active Orders 07/04/20 08:15 Ready for Discharge [RC] PER UNIT ROUTINE 07/06/20 05:11 GENTAMICIN RANDOM [CHEM] AM - Assessment Assessment:: PPD#3 after , complicated by presumed endometritis fever, mild sepsis, now resolved, afebrile for greater than 24 hours, normal WBC this am. Would like to go home. - Plan Plan:: Dismiss to home today, discharge precautions reviewed.
[2020-07-04] MEDS ORDERED: Clindamycin Phosphate in D5W 600 MG in Premix Bag 1 BAG IV SCH ×2 (09:51)
== END 2020-07-04 11:05 | disposition home or self-care (01) | DRG 805 ==
LOC: MW.OB 04:08 → OBSVTOIN 07-01 04:08 → MW.OB 07-01 08:57
PROVIDERS: ADMIT Obstetrics & Gynecology; ATTEND Obstetrics & Gynecology
PROC: 10E0XZZ Delivery of Products of Conception, External Approach (ICD-10-PCS; principal; 2020-07-01)
PROC: 10907ZC Drainage of Amniotic Fluid, Therapeutic from Products of Conception, Via Natural or Artificial Opening (ICD-10-PCS; 2020-07-01)
PROC: 10H07YZ Insertion of Other Device into Products of Conception, Via Natural or Artificial Opening (ICD-10-PCS; 2020-07-01)
PROC: 3E0P7VZ Introduction of Hormone into Female Reproductive, Via Natural or Artificial Opening (ICD-10-PCS; 2020-07-01)
PROC: 3E033VJ Introduction of Other Hormone into Peripheral Vein, Percutaneous Approach (ICD-10-PCS; 2020-07-01)
PROC: 0HQ9XZZ Repair Perineum Skin, External Approach (ICD-10-PCS; 2020-07-01)
PROC: 3E0R3BZ Introduction of Anesthetic Agent into Spinal Canal, Percutaneous Approach (ICD-10-PCS; 2020-07-01)
PROC: 00HU33Z Insertion of Infusion Device into Spinal Canal, Percutaneous Approach (ICD-10-PCS; 2020-07-01)
DX: O48.0 Post-term pregnancy (principal); O85 Puerperal sepsis; Z37.0 Single live birth; O41.03X0 Oligohydramnios, third trimester, not applicable or unspecified; Z3A.40 40 weeks gestation of pregnancy; Z11.59 Encounter for screening for other viral diseases; O99.02 Anemia complicating childbirth; D50.9 Iron deficiency anemia, unspecified
CPT/HCPCS: 01967; 36415; 51702; 59025; 59200; 59409; 71045; 71045-26; 80053; 80170; 81001; 83605; 85007; 85025; 85027; 86592; 86850; 86900; 86901; 87040; A9270-GY; J0295; J0595; J1580; J2405; J2590; J3490; J7030; J7050; J7120; U0002